=== PATIENT | female | born 1965 | race Caucasian/White ===

== ENCOUNTER → 2016-07-25 | Outpatient (CLI) | payer OTHER ==
[2016-07-25 09:07] LABS: ALT 38 U/L (9-52); AST 28 U/L (14-36); Alkaline Phosphatase 53 U/L (38-126); Anion Gap 7 mmol/L; Blood Urea Nitrogen 20 mg/dL (7-17); Calcium 8.6 mg/dL (8.4-10.2); Carbon Dioxide 27 mmol/L (22-30); Chloride 106 mmol/L (98-107); Cholesterol 215 mg/dL (<200); Glucose 98 mg/dL (74-99); HDL Cholesterol 43 mg/dL (40-60); Non-African American GFR(MDRD) >60 (>60 ml/min/1.73 sqM); Potassium 4.5 mmol/L (3.5-5.1); Sodium 140 mmol/L (137-145); Total Bilirubin 0.6 mg/dL (0.2-1.3); Total Protein 6.2 g/dL (6.3-8.2); Triglycerides 266 mg/dL (<150)
[2016-07-25 09:36] LABS: Basophils % (A) 1 %; CH 30.6; CHCM 34.1; Eosinophils # (A) 0.2 k/uL (0-0.7); Eosinophils % (A) 3 %; HCT 45.5 % (34.0-46.0); HDW 2.96; HGB 14.8 gm/dL (11.4-16.0); Luc # (Auto) 0.14; Luc % (Auto) 2; Lymphocytes # (A) 1.7 k/uL (1.0-4.8); Lymphocytes % (A) 27 %; MCH 29.3 pg (25.0-35.0); MCHC 32.6 g/dL (31.0-37.0); Mean Platelet Volume 7.3; Monocytes # (A) 0.3 k/uL (0-1.0); Monocytes % (A) 6 %; Neutrophils # (A) 3.7 k/uL (1.3-7.7); Neutrophils % (A) 62 %; RBC 5.05 m/uL (3.80-5.40); RDW 14.1 % (11.5-15.5); WBC 6.1 k/uL (3.8-10.6); WBC (Perox) 5.92
== END | disposition home or self-care (01) ==
LOC: LABWHC1 07:56
PROVIDERS: ATTEND Nurse Practitioner Family
DX: L71.9 Rosacea, unspecified (principal); Z79.899 Other long term (current) drug therapy
CPT/HCPCS: 36415; 80053; 80061; 84443; 85025

== ENCOUNTER 2019-04-03 09:57 | Observation (INO) | payer OTHER ==
[2019-04-03] MEDS ORDERED: ASPIRIN 81 MG PO STA (10:29)
[2019-04-03] MEDS ORDERED: MORPHINE SULFATE 2 MG/ML SYRINGE IVP STA (10:29)
[2019-04-03] MEDS ORDERED: SODIUM CHLORIDE 0.9% 500 ML 500 ML IV STA (10:29)
--- NOTE | 2019-04-03 10:32 | ED ---
General Adult HPI - General Source: patient, RN notes reviewed Mode of arrival: ambulatory Limitations: no limitations <Eulalio Clarke - Last Filed: 04/03/19 12:13> <Lanny Marcial - Last Filed: 04/12/19 00:15> - General Chief complaint: Chest Pain Stated complaint: Chest pain Time Seen by Provider: 04/03/19 10:03 - History of Present Illness Initial comments: 54-year-old female with a past medical history of polycystic kidney disease, hypertension, hypercholesterolemia presents to the emergency department for a chief complaint of chest pressure. Patient states she has had chest pressure for about 5 days. States she feels this pressure both in the front of her chest as well as her back. States it radiates to the right side of her neck and is causing tingling in the right arm. Patient does admit to associated shortness of breath. She denies symptoms worsening with exertion. Denies associated naus ea. Patient does states she has felt diaphoretic from time to time. States she was just standing at work today and was sweating. Patient states her sister had a heart attack at 49. Patient is a never smoker. Patient's parents did not have any heart attacks before 65. Patient denies ever having stress testing done. Patient has no other complaints at this time including abdominal pain, nausea or vomiting, headache, or visual changes. (Eulalio Clarke) - Related Data Home Medications Medication Instructions Recorded Confirmed Minocycline HCl [Minocin] 100 mg PO HS PRN 05/29/15 04/03/19 Telmisartan [Micardis] 40 mg DAILY 04/03/19 04/03/19 Previous Rx's Medication Instructions Recorded Atorvastatin Calcium [Lipitor] 10 mg PO DAILY #30 tab 04/04/19 Allergies Allergy/AdvReac Type Severity Reaction Status Date / Time No Known Allergies Allergy Verified 05/29/15 10:51 Review of Systems ROS Other: All systems not noted in ROS Statement are negative. <Eulalio Clarke - Last Filed: 04/03/19 12:13> ROS Other: All systems not noted in ROS Statement are negative. <Lanny Marcial - Last Filed: 04/12/19 00:15> ROS Statement: Those systems with pertinent positive or pertinent negative responses have been documented in the HPI. Past Medical History Past Medical History: No Reported History Additional Past Medical History / Comment(s): kidney stones, "hole in kidney" History of Any Multi-Drug Resistant Organisms: None Reported Past Surgical History: Cholecystectomy, Hernia Repair Additional Past Surgical History / Comment(s): drainage of renal abscess Past Psychological History: Anxiety Smoking Status: Never smoker Past Alcohol Use History: None Reported Past Drug Use History: None Reported <Eulalio Clarke P - Last Filed: 04/03/19 12:13> General Exam Limitations: no limitations General appearance: alert, in no apparent distress Head exam: Present: atraumatic, normocephalic, normal inspection Eye exam: Present: normal appearance, PERRL, EOMI. Absent: scleral icterus, conjunctival injection, periorbital swelling ENT exam: Present: normal exam, mucous membranes moist Neck exam: Present: normal inspection, full ROM. Absent: tenderness, meningismus, lymphadenopathy Respiratory exam: Present: normal lung sounds bilaterally. Absent: respiratory distress, wheezes, rales, rhonchi, stridor, chest wall tenderness Cardiovascular Exam: Present: regular rate, normal rhythm, normal heart sounds. Absent: systolic murmur, diastolic murmur, rubs, gallop, clicks GI/Abdominal exam: Present: soft, normal bowel sounds. Absent: distended, tenderness, guarding, rebound, rigid Extremities exam: Present: normal capillary refill (Radial pulses 2+ in upper extremities and equal bilaterally) <Eulalio Clarke P - Last Filed: 04/03/19 12:13> Course Vital Signs 04/03/19 04/03/19 09:59 12:00 Temperature 98.3 F 98.3 F Pulse Rate 71 71 Respiratory 19 19 Rate Blood Pressure 163/84 163/84 O2 Sat by Pulse 100 100 Oximetry EKG Findings - EKG Comments: EKG Findings:: Normal sinus rhythm, ventricular rate 64, W[place] interval 198, QTC 422, no evidence of ST elevation or depression <Eulalio Clarke P - Last Filed: 04/03/19 12:13> Medical Decision Making - Lab Data Result diagrams: 04/03/19 10:27 04/03/19 10:27 <Eulalio Clarke P - Last Filed: 04/03/19 12:13> - Lab Data Result diagrams: 04/04/19 08:24 04/04/19 08:24 <Lanny Marcial - Last Filed: 04/12/19 00:15> - Medical Decision Making HPI and physical exam as documented. Vitals are stable. CBC is unremarkable. CMP does show some evidence of dehydration so was given fluids. Troponin is negative. D-dimer is within normal limits. Chest x-ray shows no acute cardio pulmonary process. Given patient's family history as well as symptoms she will be admitted for cardiology consultation and possible further evaluation (Eulalio Clarke) I was available for consultation in the emergency department. The history and physical exam were done by the midlevel provider. I was consulted for this patients care. I reviewed the case with the midlevel provider and based on their presentation of the patient, I agree with the assessment, medical decision making and plan of care as documented. I agree with hospitalization and discussed the case with the admitting physician. Chart was dictated using [employer] dictation software. Attempts were made to correct any dictation errors however some typographical errors may persist. (Lanny Marcial) - Lab Data Lab Results 04/03/19 04/03/19 04/03/19 Range/Units 10:27 10:27 10:27 WBC 5.2 (3.8-10.6) k/uL RBC 4.79 (3.80-5.40) m/uL Hgb 14.5 (11.4-16.0) gm/dL Hct 42.2 (34.0-46.0) % MCV 88.0 (80.0-100.0) fL MCH 30.4 (25.0-35.0) pg MCHC 34.5 (31.0-37.0) g/dL RDW 12.9 (11.5-15.5) % Plt Count 169 (150-450) k/uL Neutrophils % 59 % Lymphocytes % 28 % Monocytes % 6 % Eosinophils % 4 % Basophils % 1 % Neutrophils # 3.1 (1.3-7.7) k/uL Lymphocytes # 1.5 (1.0-4.8) k/uL Monocytes # 0.3 (0-1.0) k/uL Eosinophils # 0.2 (0-0.7) k/uL Basophils # 0.1 (0-0.2) k/uL PT 9.6 (9.0-12.0) sec INR 0.9 (<1.2) APTT 23.3 (22.0-30.0) sec D-Dimer 0.45 (<0.60) mg/L FEU Sodium 140 (137-145) mmol/L Potassium 3.9 (3.5-5.1) mmol/L Chloride 110 H (98-107) mmol/L Carbon Dioxide 26 (22-30) mmol/L Anion Gap 4 mmol/L BUN 27 H (7-17) mg/dL Creatinine 0.66 (0.52-1.04) mg/dL Est GFR (CKD-EPI)AfAm >90 (>60 ml/min/1.73 sqM) Est GFR (CKD-EPI)NonAf >90 (>60 ml/min/1.73 sqM) Glucose 78 (74-99) mg/dL Calcium 8.5 (8.4-10.2) mg/dL Magnesium 2.0 (1.6-2.3) mg/dL Total Bilirubin 0.4 (0.2-1.3) mg/dL AST 24 (14-36) U/L ALT 30 (9-52) U/L Alkaline Phosphatase 46 (38-126) U/L Troponin I (0.000-0.034) ng/mL Total Protein 5.5 L (6.3-8.2) g/dL Albumin 3.1 L (3.5-5.0) g/dL Triglycerides (<150) mg/dL Cholesterol (<200) mg/dL LDL Cholesterol, Calc (0-99) mg/dL HDL Cholesterol (40-60) mg/dL Amylase 34 (30-110) U/L Lipase 147 (23-300) U/L 04/03/19 04/03/19 Range/Units 10:27 10:27 WBC (3.8-10.6) k/uL RBC (3.80-5.40) m/uL Hgb (11.4-16.0) gm/dL Hct (34.0-46.0) % MCV (80.0-100.0) fL MCH (25.0-35.0) pg MCHC (31.0-37.0) g/dL RDW (11.5-15.5) % Plt Count (150-450) k/uL Neutrophils % % Lymphocytes % % Monocytes % % Eosinophils % % Basophils % % Neutrophils # (1.3-7.7) k/uL Lymphocytes # (1.0-4.8) k/uL Monocytes # (0-1.0) k/uL Eosinophils # (0-0.7) k/uL Basophils # (0-0.2) k/uL PT (9.0-12.0) sec INR (<1.2) APTT (22.0-30.0) sec D-Dimer (<0.60) mg/L FEU Sodium (137-145) mmol/L Potassium (3.5-5.1) mmol/L Chloride (98-107) mmol/L Carbon Dioxide (22-30) mmol/L Anion Gap mmol/L BUN (7-17) mg/dL Creatinine (0.52-1.04) mg/dL Est GFR (CKD-EPI)AfAm (>60 ml/min/1.73 sqM) Est GFR (CKD-EPI)NonAf (>60 ml/min/1.73 sqM) Glucose (74-99) mg/dL Calcium (8.4-10.2) mg/dL Magnesium (1.6-2.3) mg/dL Total Bilirubin (0.2-1.3) mg/dL AST (14-36) U/L ALT (9-52) U/L Alkaline Phosphatase (38-126) U/L Troponin I <0.012 (0.000-0.034) ng/mL Total Protein (6.3-8.2) g/dL Albumin (3.5-5.0) g/dL Triglycerides 217 H (<150) mg/dL Cholesterol 199 (<200) mg/dL LDL Cholesterol, Calc 119 H (0-99) mg/dL HDL Cholesterol 37 L (40-60) mg/dL Amylase (30-110) U/L Lipase (23-300) U/L Disposition Is patient prescribed a controlled substance at d/c from ED?: No Time of Disposition: 12:14 <Eulalio Clarke P - Last Filed: 04/03/19 12:13> <Lanny Marcial - Last Filed: 04/12/19 00:15> Clinical Impression: Chest pressure, Dehydration Disposition: ADMITTED IP TO THIS HOSP Condition: Stable
[2019-04-03 11:08] LABS: Basophils # (A) 0.1 k/uL (0-0.2); Basophils % (A) 1 %; Eosinophils # (A) 0.2 k/uL (0-0.7); Eosinophils % (A) 4 %; HCT 42.2 % (34.0-46.0); HGB 14.5 gm/dL (11.4-16.0); Lymphocytes # (A) 1.5 k/uL (1.0-4.8); Lymphocytes % (A) 28 %; MCH 30.4 pg (25.0-35.0); MCHC 34.5 g/dL (31.0-37.0); Mean Platelet Volume 7.1; Monocytes # (A) 0.3 k/uL (0-1.0); Monocytes % (A) 6 %; Neutrophils # (A) 3.1 k/uL (1.3-7.7); Neutrophils % (A) 59 %; Platelet Count 169 k/uL (150-450); RBC 4.79 m/uL (3.80-5.40); RDW 12.9 % (11.5-15.5); WBC 5.2 k/uL (3.8-10.6)
[2019-04-03 11:09] LABS: ALT 30 U/L (9-52); AST 24 U/L (14-36); African American GFR (CKD) >90 (>60 ml/min/1.73 sqM); Albumin 3.1 g/dL (3.5-5.0); Alkaline Phosphatase 46 U/L (38-126); Amylase 34 U/L (30-110); Anion Gap 4 mmol/L; Blood Urea Nitrogen 27 mg/dL (7-17); Calcium 8.5 mg/dL (8.4-10.2); Carbon Dioxide 26 mmol/L (22-30); Chloride 110 mmol/L (98-107); Glucose 78 mg/dL (74-99); Non-African American GFR(CKD) >90 (>60 ml/min/1.73 sqM); Potassium 3.9 mmol/L (3.5-5.1); Sodium 140 mmol/L (137-145); Total Bilirubin 0.4 mg/dL (0.2-1.3); Total Protein 5.5 g/dL (6.3-8.2)
[2019-04-03 11:18] LABS: D-Dimer 0.45 mg/L FEU (<0.60); INR 0.9 (<1.2); Partial Thromboplastin Time 23.3 sec (22.0-30.0); Prothrombin Time 9.6 sec (9.0-12.0)
--- NOTE | 2019-04-03 11:20 | XR ---
EXAMINATION TYPE: XR chest 2V DATE OF EXAM: 04/03/2019 COMPARISON: NONE HISTORY: Chest pain TECHNIQUE: Frontal and lateral views of the chest are obtained. FINDINGS: There are overlying cardiac leads. There is no focal air space opacity, pleural effusion, o r pneumothorax seen. The cardiac silhouette size is within normal limits. The osseous structures a re intact. IMPRESSION: No acute cardiopulmonary process.
[2019-04-03] MEDS ORDERED: NITROGLYCERIN SL TABS 0.4 MG TAB SUBLINGUAL PRN (12:14)
[2019-04-03 13:29] VITALS: RESP 18
[2019-04-03] MEDS ORDERED: INFLUENZA VACCINE (6 MOS+) 60 MCG/0.5 ML SYRINGE IM ONE (15:20)
[2019-04-04 04:22] LABS: Cholesterol 199 mg/dL (<200); HDL Cholesterol 37 mg/dL (40-60); LDL Cholesterol,Calculated 119 mg/dL (0-99); Triglycerides 217 mg/dL (<150)
[2019-04-04] MEDS ORDERED: Magnesium Replacement Protocol 1 EACH MISC MISCELLANE PRN (08:05)
[2019-04-04] MEDS ORDERED: Potassium Replacement Protocol 1 EACH MISC MISCELLANE PRN (08:05)
[2019-04-04 08:38] LABS: HCT 41.4 % (34.0-46.0); HGB 14.1 gm/dL (11.4-16.0); MCH 30.4 pg (25.0-35.0); MCHC 34.1 g/dL (31.0-37.0); MCV 89.2 fL (80.0-100.0); Platelet Count 156 k/uL (150-450); RBC 4.64 m/uL (3.80-5.40); RDW 12.9 % (11.5-15.5); WBC 4.2 k/uL (3.8-10.6)
[2019-04-04 08:52] LABS: African American GFR (CKD) >90 (>60 ml/min/1.73 sqM); Anion Gap 4 mmol/L; Blood Urea Nitrogen 18 mg/dL (7-17); Calcium 8.1 mg/dL (8.4-10.2); Carbon Dioxide 26 mmol/L (22-30); Chloride 110 mmol/L (98-107); Glucose 98 mg/dL (74-99); Non-African American GFR(CKD) >90 (>60 ml/min/1.73 sqM); Potassium 4.3 mmol/L (3.5-5.1); Sodium 140 mmol/L (137-145)
[2019-04-04] MEDS ORDERED: ASPIRIN 325 MG TAB PO SCH (09:00)
--- NOTE | 2019-04-04 10:40 | CONS ---
CONSULTATION Olivia Angeles is a 54-year-old lady, a patient of Dr. Nina, who is an yoghurt maker who works with Dr. Rangel. This lady came into the hospital because for the last 5 to 6 days she was having pain over her right scapula area and right shoulder area posteriorly then the pain gradually came to the front of the chest and she felt concerned and came into the hospital. She has a strong family history of CAD and she has hypertension, takes Micardis 40 mg daily. She is reasonably active person, does not have a regular exercise program. Her symptoms occurred at rest, not related to activity. Three sets of troponins are normal. She is resting comfortably. There is a significant amount of anxiety. Her LDL cholesterol is 119. Other labs are within normal limits. She is resting comfortably at the time of my evaluation. PAST MEDICAL HISTORY: 1. Hypertension. 2. Strong family history of premature CAD. 3. She is status post umbilical hernia surgery, cholecystectomy. 4. She also has history of polycystic kidney disease, but renal function is good. The patient is not a smoker. ALLERGIES: None. MEDICATIONS: Medications include 40 mg of Micardis. PHYSICAL EXAMINATION: On examination, blood pressure is 130/70, pulse rate is 70 per minute, regular. HEENT: Unremarkable. Fundus was not examined by me. Neck is supple. No JVD. I do not hear a carotid bruit. There is no thyromegaly. Heart exam reveals S1, S2 heard normally. No rub, murmur or gallop. Lungs are clear. Abdomen is soft, nontender. Lower extremities reveal normal pulses. No edema. Central nervous system is normal. EKG revealed a sinus mechanism, no acute changes. IMPRESSION: 1. Atypical chest pain. 2. Polycystic kidney. 3. Hypertension. 4. Family history of coronary artery disease. RECOMMENDATIONS: I am recommending that we increase activity, proceed with an echocardiogram and a stress echo and if this is normal she can be discharged. I discussed my thoughts in detail with the patient. Thank you very much for the consult. MMODL / IJN: [id number] /
--- NOTE | 2019-04-04 11:40 | P.HPIM ---
History of Present Illness H&P Date: 04/04/19 Chief Complaint: Right shoulder blade pressure radiating to right chest This is a 54-year-old female with history of hypertension, polycystic renal disease, kidney stones, gastric ulcer, diverticular disease, cholecystectomy, strong family history of CAD, sister from [place] presented to the ER with complaints of posterior right shoulder blade pressure radiated to right anterior chest, right arm tingling sensation ,present upon awakening on Sunday morning, accompanied by shortness of breath, worsened with exertion . Denies awakening caused from the pressure.Denies diaphoresis, denies lightheadedness, dizziness or palpitations. Denies nausea vomiting or diarrhea. Denies abdominal pain. Denies recent strenuous exertional activities, trauma. Troponins negative 3. EKG sinus rhythm. D-dimer within normal limits. Chest x-ray nonacute. Vital signs stable, afebrile, normal WBC. CBC unremarkable. Potassium 3.9, chloride 110, BUN 27 and creatinine 0.66, magnesium 2.0. Albumin 3.1, triglycerides 217, cholesterol 199, LDL 119, HDL 37. LFTs within normal limits. Review of Systems Constitutional: Denied any fatigue denied any fever. Cardio vascular: denied any chest pain, palpitations Gastrointestinal denied any nausea vomiting Pulmonary: Positive shortness of breath cough Neurologic denied any new focal deficits ROS Statement: Those systems with pertinent positive or pertinent negative responses have been documented in the HPI. ROS Other: All systems not noted in ROS Statement are negative. Past Medical History Past Medical History: No Reported History Additional Past Medical History / Comment(s): kidney stones, "hole in kidney" History of Any Multi-Drug Resistant Organisms: None Reported Past Surgical History: Cholecystectomy, Hernia Repair Additional Past Surgical History / Comment(s): drainage of renal abscess Past Psychological History: Anxiety Smoking Status: Never smoker Past Alcohol Use History: None Reported Past Drug Use History: None Reported - Past Family History Father Family Medical History: Cancer Additional Family Medical History / Comment(s): Father had exposure to asbestos. Mother Family Medical History: Hyperlipidemia, Hypertension Additional Family Medical History / Comment(s): Mother had diverticular disease. Sister(s) Family Medical History: Diabetes Mellitus, Myocardial Infarction (PA) Additional Family Medical History / Comment(s): One sister had a PA at the age of 48yrs. Another sister had renal failure, breast cancer, diabetes and CABG at the age of 65yrs-she is . Medications and Allergies Home Medications Medication Instructions Recorded Confirmed Type Minocycline HCl [Minocin] 100 mg PO HS PRN 05/29/15 04/03/19 History Telmisartan [Micardis] 40 mg DAILY 04/03/19 04/03/19 History Allergies Allergy/AdvReac Type Severity Reaction Status Date / Time No Known Allergies Allergy Verified 05/29/15 10:51 Physical Exam Vitals: Vital Signs Temp Pulse Pulse Resp BP BP Pulse Ox 04/03/19 13:28 97.9 F 65 18 164/94 100 04/03/19 12:00 98.3 F 71 19 163/84 100 04/03/19 09:59 98.3 F 71 19 163/84 100 Intake and Output 04/02/19 04/03/19 04/03/19 22:59 06:59 14:59 Other: Weight 78.925 kg PHYSICAL EXAM: VITAL SIGNS: As above GENERAL: Sitting up in bed, no acute distress HEENT: Conjunctivae normal. eyes normal. NECK: No JVD. No thyroid enlargement. No LNs CARDIOVASCULAR: S1, S2 regular.. No murmur RESPIRATION: Breath sounds diminished in the bases. No rhonchi or crackles. No bronchial breathing. ABDOMEN: Soft, nontender . No guarding. no masses palpable. No ascites, No hepatosplenomegaly.Bowel sounds heard. LEGS: No edema. no swelling PSYCHIATRY: Alert and oriented X3, mood and affect normal. NERVOUS SYSTEM: Cranial N 2-12 grossly normal. Moves all 4 limbs. No focal deficits. Strength and sensation grossly intact.. Skin: no rash Joints: No active swelling. No inflammation. Lymphatic system. No LN neck axilla . Results CBC & Chem 7: 04/04/19 08:24 04/04/19 08:24 Labs: Abnormal Lab Results - Last 24 Hours (Table) 04/03/19 Range/Units 10:27 Chloride 110 H (98-107) mmol/L BUN 27 H (7-17) mg/dL Total Protein 5.5 L (6.3-8.2) g/dL Albumin 3.1 L (3.5-5.0) g/dL Assessment and Plan Assessment: Acute chest pressure, possibly Prinzmetal angina, in a patient with strong family history of CAD. Hypertension Polycystic renal disease Cholecystectomy Gastric ulcer Obesity, BMI 30.8 Hyperlipidemia Plan: Continue on current medication regime ,monitoring and symptomatic treatment. Acute coronary syndrome pathway. Cardiology consulted. Echo ordered. GI and DVT prophylaxis in place. The impression and plan of care has been dictated as directed. : I performed a history and examination of this patient, discussed the same with the dictator. I agree with the dictator's note ,documented as a scribe. Any additional findings or plans will be noted.
--- NOTE | 2019-04-04 11:44 | ECHOF ---
Referral Reason:CP MEASUREMENTS -------- HEIGHT: 160.0 cm WEIGHT: 78.9 kg BP: 164/94 RVIDd: 2.8 cm (< 3.3) IVSd: 1.3 cm (0.6 - 1.1) LVIDd: 4.2 cm (3.9 - 5.3) LVPWd: 1.3 cm (0.6 - 1.1) IVSs: 1.7 cm LVIDs: 2.7 cm LVPWs: 1.7 cm LA Diam: 2.8 cm (2.7 - 3.8) LAESV Index (A-L): 22.27 ml/m Ao Diam: 3.0 cm (2.0 - 3.7) AV Cusp: 2.3 cm (1.5 - 2.6) MV EXCURSION: 15.387 mm (> 18.000) MV EF SLOPE: 78 mm/s (70 - 150) EPSS: 0.6 cm MV E Willem: 0.96 m/s MV DecT: 231 ms MV A Willem: 0.82 m/s MV E/A Ratio: 1.17 FINDINGS -------- Sinus rhythm. This was a technically good study. The left ventricular size is normal. There is mild concentric left ventricular hypertrophy. Overa ll left ventricular systolic function is normal with, an EF between 60 - 65 %. The right ventricle is normal in size. Normal LA size by volume 22+/-6 ml/m2. The right atrium is normal in size. Interatrial and interventricular septum intact. The aortic valve is trileaflet and appears structurally normal. The mitral valve is normal. The tricuspid valve appears structurally normal. Trace/mild (physiologic) pulmonic regurgitation. The aortic root size is normal. Normal inferior vena cava with normal inspiratory collapse consistent with estimated right atrial pre ssure of 5 mmHg. There is no pericardial effusion. CONCLUSIONS -------- 1. Sinus rhythm. 2. This was a technically good study. 3. The left ventricular size is normal. 4. There is mild concentric left ventricular hypertrophy. 5. Overall left ventricular systolic function is normal with, an EF between 60 - 65 %. 6. The right ventricle is normal in size. 7. Normal LA size by volume 22+/-6 ml/m2. 8. The right atrium is normal in size. 9. Interatrial and interventricular septum intact. 10. The aortic valve is trileaflet and appears structurally normal. 11. The mitral valve is normal. 12. The tricuspid valve appears structurally normal. 13. Trace/mild (physiologic) pulmonic regurgitation. 14. The aortic root size is normal. 15. Normal inferior vena cava with normal inspiratory collapse consistent with estimated right atrial pressure of 5 mmHg. 16. There is no pericardial effusion. WORK CAR OPERATOR: LUZ MARIA Chow
[2019-04-04] MEDS ORDERED: PANTOPRAZOLE 40 MG/10 ML VIAL IVP SCH (12:00)
[2019-04-04 12:19] VITALS: PULSE 77; TEMP 97.5
[2019-04-04 13:01] VITALS: BP 142/98
--- NOTE | 2019-04-04 13:02 | ECHOS ---
STRESS ECHOCARDIOGRAM DATE OF SERVICE: 04/04/2019 INDICATIONS: Chest pain. MEDICATIONS: Micardis. BASELINE HEART RATE: 65 BASELINE BLOOD PRESSURE: 137/75 MAXIMUM HEART RATE: 147 MAXIMUM BLOOD PRESSURE: 211/80 85% MPHR: 139 100% MPHR: 164 METS: 9.7 MAXIMUM STAGE REACHED: III TOTAL EXERCISE TIME: 8 minutes CLINICAL INFORMATION: Baseline EKG revealed normal sinus rhythm without significant ST-T changes. Patient walked for 8 minutes achieved a maximal heart rate of 147 beats per minute which is well above 85% of predicted maximal. She developed fatigue and shortness of breath but did not have angina or arrhythmia. EKG did not reveal any ST-segment changes to indicate ischemia. There was hypertensive response to exercise with a peak pressure of 211/80. By EKG criteria, this is a negative stress test with fair exercise capacity. Baseline echo images revealed normal wall motion and wall thickening of all segments. At peak exercise, there was good augmentation of left ventricular wall motion and wall thickening of all segments suggesting that there is no evidence of any stress-induced ischemia on this study. FINAL IMPRESSION: 1. By EKG criteria, this is a negative stress test with fair exercise capacity. 2. Normal stress echocardiogram without any evidence to suggest ischemia. MMODL / IJN: [id number] /
--- NOTE | 2019-04-04 14:04 | P.DS ---
Providers Date of admission: 04/03/19 12:15 Expected date of discharge: 04/04/19 Attending physician: Mookie Nina Consults: 04/03/19 12:14 Consult Physician Routine Consulting Provider: Adis Ortiz Consult Reason/Comments: chest pressure, concerning fam history, Do you want consulting provider notified?: Yes Primary care physician: Mookie Nina Hospital Course: Final Diagnoses: atypical chest pressure, in a patient with strong family history of CAD.status post verbally reported negative stress echo Hypertension Polycystic renal disease Cholecystectomy Gastric ulcer Obesity, BMI 30.8 Hyperlipidemia Hospital course:This is a 54-year-old female with history of hypertension, polycystic renal disease, kidney stones, gastric ulcer, diverticular disease, cholecystectomy, strong family history of CAD, sister from [place] presented to the ER with complaints of posterior right shoulder blade pressure radiated to right anterior chest, right arm tingling sensation ,present upon awakening on Sunday morning, accompanied by shortness of breath, worsened with exertion . Denies awakening caused from the pressure.Denies diaphoresis, denies lightheadedness, dizziness or palpitations. Denies nausea vomiting or diarrhea. Denies abdominal pain. Denies recent strenuous exertional activities, trauma. Troponins negative 3. EKG sinus rhythm. D-dimer within normal limits. Chest x-ray nonacute. Vital signs stable, afebrile, normal WBC. CBC unremarkable. Potassium 3.9, chloride 110, BUN 27 and creatinine 0.66, magnesium 2.0. Albumin 3.1, triglycerides 217, cholesterol 199, LDL 119, HDL 37. LFTs within normal limits. evaluated by cardiology with stress echo recommended.echo reported normal LV function, EF 60-65%.Verbal report of negative stress echo and cardiac Clearance for dc.patient is being discharged home in stable condition with guarded prognosis. EXAM: GENERAL: Alert andOriented 3,no acute distress CARDIOVASCULAR: S1, S2 regular. No murmur RESPIRATION: Breath sounds diminished in the bases. ABDOMEN: Soft, nontender . No guarding. no masses palpable. Bowel sounds heard. NERVOUS SYSTEM: No focal deficits. The impression and plan of care has been dictated as directed. : I performed a history and examination of this patient, discussed the same with the dictator. I agree with the dictator's note ,documented as a scribe. Any additional findings or plans will be noted. Patient Condition at Discharge: Stable Plan - Discharge Summary Discharge Rx Participant: No New Discharge Prescriptions: New Atorvastatin Calcium [Lipitor] 10 mg PO DAILY #30 tab Continue Minocycline HCl [Minocin] 100 mg PO HS PRN PRN Reason: ROSACEA Telmisartan [Micardis] 40 mg DAILY Discharge Medication List Minocycline HCl [Minocin] 100 mg PO HS PRN 05/29/15 [History] Telmisartan [Micardis] 40 mg DAILY 04/03/19 [History] Atorvastatin Calcium [Lipitor] 10 mg PO DAILY #30 tab 04/04/19 [Rx] Follow up Appointment(s)/Referral(s): Linda Bruce MD [STAFF PHYSICIAN] - 2 Weeks (office will call the patient regarding time and date of follow up appointment.) Mookie Nina MD [Primary Care Provider] - 3 Days Patient Instructions/Handouts: Chest Pain (DC) Discharge Disposition: HOME SELF-CARE
== END 2019-04-04 13:30 | disposition home or self-care (01) ==
LOC: EC 09:57 → 1SOBS 12:15
PROVIDERS: ADMIT Family Medicine; ATTEND Family Medicine
DX: R07.89 Other chest pain (principal); E66.9 Obesity, unspecified; E78.00 Pure hypercholesterolemia, unspecified; E78.5 Hyperlipidemia, unspecified; E86.0 Dehydration; I10 Essential (primary) hypertension; K25.9 Gastric ulcer, unspecified as acute or chronic, without hemorrhage or perforation; Q61.3 Polycystic kidney, unspecified; Z68.30 Body mass index [BMI] 30.0-30.9, adult; Z79.899 Other long term (current) drug therapy; Z80.3 Family history of malignant neoplasm of breast; Z82.49 Family history of ischemic heart disease and other diseases of the circulatory system; Z83.3 Family history of diabetes mellitus; Z87.11 Personal history of peptic ulcer disease; Z87.442 Personal history of urinary calculi; Z90.49 Acquired absence of other specified parts of digestive tract
CPT/HCPCS: 93005 ×2; 99285; 36415; 94760; 93306; 93351; 85379; 80061; 80053; 80048; 82150; 83690; 83735; 84484; 85025; 85027; 85610; 85730; 71046; 90686; G0378 ×2; G0008

== ENCOUNTER 2019-10-30 10:33 | Emergency (ER) | payer OTHER ==
[2019-10-30 10:37] VITALS: PULSE 62; RESP 18; TEMP 97.9
[2019-10-30] MEDS ORDERED: KETOROLAC 30 MG/ML 1 ML VIAL IVP STA (10:58)
[2019-10-30] MEDS ORDERED: ONDANSETRON 4 MG/2 ML VIAL IVP STA (10:58)
[2019-10-30] MEDS ORDERED: SODIUM CHLORIDE 0.9% 1,000 ML IV STA ×2 (10:58)
[2019-10-30] MEDS ORDERED: PANTOPRAZOLE 40 MG/10 ML VIAL IVP STA (10:58)
[2019-10-30] MEDS ORDERED: MORPHINE SULFATE 4 MG/ML SYRINGE IV STA (10:58)
--- NOTE | 2019-10-30 11:00 | ED ---
Abdominal Pain HPI - General Chief Complaint: Abdominal Pain Stated Complaint: Ovary & back pain Time Seen by Provider: 10/30/19 10:41 Source: patient, family, RN notes reviewed, old records reviewed Mode of arrival: ambulatory Limitations: no limitations - History of Present Illness Initial Comments: Patient is a 54-year-old female who presents emergency Department today with complaints of onset of right pelvic pain leading towards the right flank onset at 5:30 this morning. She reports that she had a history of kidney stones in the past but they've always affected her left side. Has implanted history of ovarian cysts. She complains of nausea. Patient denies any chest pain or shortness of breath. She does relate that she had a small bowel movement this morning but denies any diarrhea or bloody stools and denies any change in urination. - Related Data Home Medications Medication Instructions Recorded Confirmed Minocycline HCl [Minocin] 100 mg PO HS PRN 05/29/15 04/03/19 Telmisartan [Micardis] 40 mg DAILY 04/03/19 04/03/19 Previous Rx's Medication Instructions Recorded Atorvastatin Calcium [Lipitor] 10 mg PO DAILY #30 tab 04/04/19 Cephalexin [Keflex] 500 mg PO Q6HR 10 Days #40 cap 10/30/19 HYDROcodone/APAP 10-325MG [[place] 1 tab PO Q6H PRN #10 tab 10/30/19 10-325] Ketorolac [Toradol] 10 mg PO Q6HR #15 tab 10/30/19 Ondansetron Odt [Zofran Odt] 4 mg PO Q8HR PRN #15 tab 10/30/19 Tamsulosin [Flomax] 0.4 mg PO DAILY #7 cap 10/30/19 Allergies Allergy/AdvReac Type Severity Reaction Status Date / Time No Known Allergies Allergy Verified 10/30/19 10:37 Review of Systems ROS Statement: Those systems with pertinent positive or pertinent negative responses have been documented in the HPI. ROS Other: All systems not noted in ROS Statement are negative. Past Medical History Past Medical History: No Reported History Additional Past Medical History / Comment(s): kidney stones, "hole in kidney" History of Any Multi-Drug Resistant Organisms: None Reported Past Surgical History: Cholecystectomy, Hernia Repair Additional Past Surgical History / Comment(s): drainage of renal abscess Past Anesthesia/Blood Transfusion Reactions: No Reported Reaction Past Psychological History: Anxiety Smoking Status: Never smoker Past Alcohol Use History: None Reported Past Drug Use History: None Reported - Past Family History Father Family Medical History: Cancer Additional Family Medical History / Comment(s): Father had exposure to asbestos. Mother Family Medical History: Hyperlipidemia, Hypertension Additional Family Medical History / Comment(s): Mother had diverticular disease. Sister(s) Family Medical History: Diabetes Mellitus, Myocardial Infarction (RI) Additional Family Medical History / Comment(s): One sister had a RI at the age of 48yrs. Another sister had renal failure, breast cancer, diabetes and CABG at the age of 65yrs-she is . General Exam - General Exam Comments Initial Comments: 54-year-old female. Alert and oriented. Limitations: no limitations General appearance: alert, in no apparent distress Head exam: Present: atraumatic, normocephalic, normal inspection Eye exam: Present: normal appearance, PERRL, EOMI. Absent: scleral icterus, conjunctival injection, periorbital swelling ENT exam: Present: normal exam, mucous membranes moist Neck exam: Present: normal inspection. Absent: tenderness, meningismus, lymphadenopathy Respiratory exam: Present: normal lung sounds bilaterally. Absent: respiratory distress, wheezes, rales, rhonchi, stridor Cardiovascular Exam: Present: regular rate, normal rhythm, normal heart sounds. Absent: systolic murmur, diastolic murmur, rubs, gallop, clicks GI/Abdominal exam: Present: soft, tenderness (Right lower quadrant tenderness), normal bowel sounds. Absent: distended, guarding, rebound, rigid Extremities exam: Present: normal inspection, full ROM, normal capillary refill. Absent: tenderness, pedal edema, joint swelling, calf tenderness Back exam: Present: normal inspection Neurological exam: Present: alert Psychiatric exam: Present: normal affect, normal mood Skin exam: Present: warm, dry, intact, normal color. Absent: rash Course Vital Signs 10/30/19 10/30/19 10:34 12:54 Temperature 97.9 F Pulse Rate 62 Respiratory 18 Rate Blood Pressure 225/108 163/79 O2 Sat by Pulse 98 Oximetry Medical Decision Making - Medical Decision Making 54-year-old female presents emergency Department department today with onset of right-sided lower abdominal pain starting at 5:30 this morning. She did go to work. Patient reports that she has no fevers. On exam she has right lower quadrant tenderness and right flank tenderness. Labs reviewed. Evidence of hematuria and white blood cells and bacteria in the urine. Urine culture will be completed. CT abdomen and pelvis was reviewed. She is evidence of a 3 mm distal right ureter stone with evidence of hydronephrosis. She also has significant cysts on bilateral kidneys which hasn't increased in size from previous scan in 2016. I informed Patient of the multiple cysts and she has been aware of this but has not followed with a urologist or her geriatric personal care aide in some time. Patient also was informed of cysts over the liver. Computed tomography scan also shows a bulky uterus and she may benefit from pelvic MRI or ultrasound in the future. I didn't perform Patient all these findings and to follow-up with her primary care physician. In the meantime with patient's urinalysis showing some concern for blood cells of infection she was given 2 g of bolus of IV Rocephin and pain was managed after Dilaudid and Toradol dose of morphine. Patient was reevaluated resting comfortably in bed. I discussed proper follow-up with urology regards to the polycystic kidney disease and disease and current kidney stone. Discussed return parameters. - Lab Data Result diagrams: 10/30/19 11:10 10/30/19 11:10 Lab Results 10/30/19 10/30/19 10/30/19 Range/Units 11:10 11:10 11:10 WBC 7.1 (3.8-10.6) k/uL RBC 4.95 (3.80-5.40) m/uL Hgb 14.6 (11.4-16.0) gm/dL Hct 43.5 (34.0-46.0) % MCV 88.0 (80.0-100.0) fL MCH 29.4 (25.0-35.0) pg MCHC 33.4 (31.0-37.0) g/dL RDW 13.1 (11.5-15.5) % Plt Count 179 (150-450) k/uL Neutrophils % 67 % Lymphocytes % 23 % Monocytes % 6 % Eosinophils % 2 % Basophils % 1 % Neutrophils # 4.7 (1.3-7.7) k/uL Lymphocytes # 1.6 (1.0-4.8) k/uL Monocytes # 0.4 (0-1.0) k/uL Eosinophils # 0.1 (0-0.7) k/uL Basophils # 0.0 (0-0.2) k/uL PT 9.7 (9.0-12.0) sec INR 0.9 (<1.2) APTT 24.2 (22.0-30.0) sec Sodium 137 (137-145) mmol/L Potassium 4.4 (3.5-5.1) mmol/L Chloride 108 H (98-107) mmol/L Carbon Dioxide 24 (22-30) mmol/L Anion Gap 5 mmol/L BUN 26 H (7-17) mg/dL Creatinine 0.81 (0.52-1.04) mg/dL Est GFR (CKD-EPI)AfAm >90 (>60 ml/min/1.73 sqM) Est GFR (CKD-EPI)NonAf 82 (>60 ml/min/1.73 sqM) Glucose 100 H (74-99) mg/dL Calcium 8.8 (8.4-10.2) mg/dL Total Bilirubin 0.5 (0.2-1.3) mg/dL AST 26 (14-36) U/L ALT 25 (4-34) U/L Alkaline Phosphatase 59 (38-126) U/L Total Protein 6.8 (6.3-8.2) g/dL Albumin 3.9 (3.5-5.0) g/dL Amylase 59 (30-110) U/L Lipase 193 (23-300) U/L Urine Color Urine Appearance (Clear) Urine pH (5.0-8.0) Ur Specific [place] (1.001-1.035) Urine Protein (Negative) Urine Glucose (UA) (Negative) Urine Ketones (Negative) Urine Blood (Negative) Urine Nitrite (Negative) Urine Bilirubin (Negative) Urine Urobilinogen (<2.0) mg/dL Ur Leukocyte Esterase (Negative) Urine RBC (0-5) /hpf Urine WBC (0-5) /hpf Ur Squamous Epith Cells (0-4) /hpf Urine Bacteria (None) /hpf Urine Mucus (None) /hpf 10/30/19 Range/Units 11:10 WBC (3.8-10.6) k/uL RBC (3.80-5.40) m/uL Hgb (11.4-16.0) gm/dL Hct (34.0-46.0) % MCV (80.0-100.0) fL MCH (25.0-35.0) pg MCHC (31.0-37.0) g/dL RDW (11.5-15.5) % Plt Count (150-450) k/uL Neutrophils % % Lymphocytes % % Monocytes % % Eosinophils % % Basophils % % Neutrophils # (1.3-7.7) k/uL Lymphocytes # (1.0-4.8) k/uL Monocytes # (0-1.0) k/uL Eosinophils # (0-0.7) k/uL Basophils # (0-0.2) k/uL PT (9.0-12.0) sec INR (<1.2) APTT (22.0-30.0) sec Sodium (137-145) mmol/L Potassium (3.5-5.1) mmol/L Chloride (98-107) mmol/L Carbon Dioxide (22-30) mmol/L Anion Gap mmol/L BUN (7-17) mg/dL Creatinine (0.52-1.04) mg/dL Est GFR (CKD-EPI)AfAm (>60 ml/min/1.73 sqM) Est GFR (CKD-EPI)NonAf (>60 ml/min/1.73 sqM) Glucose (74-99) mg/dL Calcium (8.4-10.2) mg/dL Total Bilirubin (0.2-1.3) mg/dL AST (14-36) U/L ALT (4-34) U/L Alkaline Phosphatase (38-126) U/L Total Protein (6.3-8.2) g/dL Albumin (3.5-5.0) g/dL Amylase (30-110) U/L Lipase (23-300) U/L Urine Color Light Red Urine Appearance Cloudy H (Clear) Urine pH 5.0 (5.0-8.0) Ur Specific [place] 1.017 (1.001-1.035) Urine Protein Trace H (Negative) Urine Glucose (UA) Negative (Negative) Urine Ketones Negative (Negative) Urine Blood Moderate H (Negative) Urine Nitrite Negative (Negative) Urine Bilirubin Negative (Negative) Urine Urobilinogen <2.0 (<2.0) mg/dL Ur Leukocyte Esterase Large H (Negative) Urine RBC >182 H (0-5) /hpf Urine WBC 67 H (0-5) /hpf Ur Squamous Epith Cells 2 (0-4) /hpf Urine Bacteria Occasional H (None) /hpf Urine Mucus Few H (None) /hpf - Radiology Data Radiology results: report reviewed Ultrasound shows a possible 3 mm distal right ureteral calculus. Correlating for renal colic send symptoms. Mild fat stranding around the right kidney with mild obstructive uropathy. Multicystic kidneys and liver. Renal cysts are 8.6 cm increased from 8 cm. The cystic right kidney is very bulky with increasing signs of cysts in the right side of the abdomen with continued mass effect onto the pancreatic head. There is evidence of a bulky uterus suspecting underlying large fibroid measuring 8.4 cm which is increased from 6.6 cm. Given post menopausal status nonemergent pelvic ultrasound or MRI can evaluate. There is diffuse diverticulosis without diverticulitis. Disposition Clinical Impression: Right ureteral stone, Polycystic kidney, Liver cyst, Uterine fibroid Disposition: HOME SELF-CARE Condition: Good Instructions (If sedation given, give patient instructions): Ureteral Stones (ED) Additional Instructions: Patient has a drink plenty of fluids. Follow-up with urology. Return to emergency department if any alarming signs or symptoms occur. Prescriptions: Tamsulosin [Flomax] 0.4 mg PO DAILY #7 cap Cephalexin [Keflex] 500 mg PO Q6HR 10 Days #40 cap HYDROcodone/APAP 10-325MG [[place] 10-325] 1 tab PO Q6H PRN #10 tab PRN Reason: Pain Ketorolac [Toradol] 10 mg PO Q6HR #15 tab Ondansetron Odt [Zofran Odt] 4 mg PO Q8HR PRN #15 tab PRN Reason: Nausea Is patient prescribed a controlled substance at d/c from ED?: Yes If prescribed controlled substance>3 days was MAPS reviewed?: Prescribed <3 Days If opioid is for acute pain is fill amount 7 days or less?: Yes If Rx opioid, was Start Talking consent form obtained?: Yes Referrals: Adithya Beach DO [Primary Care Provider] - 1-2 days Time of Disposition: 13:38
[2019-10-30 11:32] LABS: Basophils % (A) 1 %; Eosinophils # (A) 0.1 k/uL (0-0.7); Eosinophils % (A) 2 %; HCT 43.5 % (34.0-46.0); HGB 14.6 gm/dL (11.4-16.0); Lymphocytes # (A) 1.6 k/uL (1.0-4.8); Lymphocytes % (A) 23 %; MCH 29.4 pg (25.0-35.0); MCHC 33.4 g/dL (31.0-37.0); Monocytes # (A) 0.4 k/uL (0-1.0); Monocytes % (A) 6 %; Neutrophils # (A) 4.7 k/uL (1.3-7.7); Neutrophils % (A) 67 %; Platelet Count 179 k/uL (150-450); RBC 4.95 m/uL (3.80-5.40); RDW 13.1 % (11.5-15.5); WBC 7.1 k/uL (3.8-10.6)
[2019-10-30 11:39] LABS: ALT 25 U/L (4-34); AST 26 U/L (14-36); African American GFR (CKD) >90 (>60 ml/min/1.73 sqM); Albumin 3.9 g/dL (3.5-5.0); Alkaline Phosphatase 59 U/L (38-126); Amylase 59 U/L (30-110); Anion Gap 5 mmol/L; Appearance,Urine Cloudy (Clear); Bacteria,Urine Occasional /hpf; Bilirubin,Urine Negative (Negative); Blood Urea Nitrogen 26 mg/dL (7-17); Blood,Urine Moderate (Negative); Calcium 8.8 mg/dL (8.4-10.2); Carbon Dioxide 24 mmol/L (22-30); Chloride 108 mmol/L (98-107); Color,Urine Light Red; Glucose 100 mg/dL (74-99); Glucose,Urine (UA) Negative (Negative); Ketones,Urine Negative (Negative); Leukocyte Esterase,Urine Large (Negative); Mucus,Urine Few /hpf; Nitrite,Urine Negative (Negative); Non-African American GFR(CKD) 82 (>60 ml/min/1.73 sqM); Potassium 4.4 mmol/L (3.5-5.1); Protein,Urine Trace (Negative); RBC,Urine >182 /hpf (0-5); Sodium 137 mmol/L (137-145); Specific Gravity,Urine 1.017 (1.001-1.035); Squamous Epithelial Cell,Urine 2 /hpf (0-4); Total Bilirubin 0.5 mg/dL (0.2-1.3); Total Protein 6.8 g/dL (6.3-8.2); Urobilinogen,Urine <2.0 mg/dL (<2.0); WBC,Urine 67 /hpf (0-5)
--- NOTE | 2019-10-30 11:40 | XR ---
EXAMINATION TYPE: XR KUB DATE OF EXAM: 10/30/2019 Comparison: 02/09/2011 Clinical History: 54-year-old female with abdominal pain Findings: Lung bases are clear. No evidence for free intraperitoneal air. Cholecystectomy clips. No dilated small bowel or air-fluid levels. Mild overall snowboarding. Multiple pelvic phleboliths. No definite suspicious calcification seen. Impression: No evidence for free air or bowel obstruction. Mild stool burden.
[2019-10-30 11:51] LABS: INR 0.9 (<1.2); Partial Thromboplastin Time 24.2 sec (22.0-30.0); Prothrombin Time 9.7 sec (9.0-12.0)
--- NOTE | 2019-10-30 12:14 | CT ---
EXAMINATION TYPE: CT abdomen pelvis wo con DATE OF EXAM: 10/30/2019 COMPARISON: 05/29/2015 HISTORY: 54-year-old female Hematuria, nausea CT DLP: 762.4 mGycm. Automated exposure control for dose reduction was used. TECHNIQUE: Contiguous axial scanning of the abdomen and pelvis without IV contrast. Coronal and sagit [place] reconstructions performed. FINDINGS: Heart upper limits of normal in size without pericardial effusion. Mild dependent atelectasis in the visualized lung bases. Redemonstrated multiple hepatic cysts, largest measuring 6.1 cm located within the right liver lobe, previously having measured 4.6 cm. Cholecystectomy clips. Adrenal glands and pancreas show no gross abnormality though assessment is limited due to noncontrast technique. Spleen borderline in size at 13.8 cm. Cystic bilateral kidneys redemonstrated. Largest cysts measure 8.2 cm left lower pole, unchanged and 8.6 cm on the right, increased from 8.0 cm. Medial cyst has also increased in size to 7.5 cm from 5.1 cm, previously. Medial upper pole cyst. The pancreatic head anteriorly measuring 4.3 cm versus 3.6 c m, previously. The cystic right kidney is very bulky filling the right side of the abdomen. This seems to be some new fat stranding just above the right kidney, axial image 57. Etiology is uncl ear. Possible 3 mm distal right ureteral calculus, axial image 134. Scattered colonic diverticulosis. No significant stool burden. No pericolonic inflammatory change. Bladder is collapsed. Redemonstrated bulky fibroid uterus with 8.4 cm rounded mass centered within th e uterine body versus 6.6 cm, previously. Numerous pelvic phlebolith. No abnormal fluid collection in the pelvis. No definite suspicious lymphadenopathy seen. Bones: Mild degenerative change at the hips. Mild degenerative change SI joints. No osseous destructi ve process. IMPRESSION: 1. Possible 3 mm distal right ureteral calculus. Correlate for renal colic symptoms. Some mild fat s tranding around the right kidney may be secondary to mild obstructive uropathy. 2. Multicystic kidneys and liver. Renal cysts measure up to 8.6 cm, increased from 8.0 cm. The cysti c right kidney is very bulky with increasing size of cysts and filling the right side of the abdomen with continued mass effect onto the pancreatic head. 3. Bulky uterus, suspect underlying large fibroid measuring 8.4 cm, increased in size from 6.6 cm, p reviously. Given postmenopausal status, nonemergent follow-up pelvic ultrasound or MRI could further evaluate. 4. Generalized colonic diverticulosis without acute diverticulitis.
[2019-10-30] MEDS ORDERED: HYDROmorphone 1 MG/ML 1 ML SYRINGE IVP STA (12:34)
[2019-10-30 12:55] VITALS: BP 163/79
[2019-10-30] MEDS ORDERED: TAMSULOSIN 0.4 MG CAP.ER.24H PO STA (13:22)
[2019-10-30] MEDS ORDERED: ONDANSETRON 4 MG ODT STARTER PACK 2 TAB BTL PO STA (13:41)
[2019-10-30] MEDS ORDERED: ACET/COD 300 MG/30 MG STARTER PACK 6 TAB BTL PO STA (13:41)
== END 2019-10-30 13:50 | disposition home or self-care (01) ==
LOC: EC 10:33
DX: N20.1 Calculus of ureter (principal); D25.9 Leiomyoma of uterus, unspecified; K76.89 Other specified diseases of liver; N28.1 Cyst of kidney, acquired; Z78.0 Asymptomatic menopausal state; Z79.899 Other long term (current) drug therapy; Z90.49 Acquired absence of other specified parts of digestive tract
CPT/HCPCS: 36415; 80053; 82150; 83690; 85025; 85610; 85730; 81001; 87086; 74018; 74176; 99285; 96365; 96375 ×5; 96361; J2270; J2405; J0696; J1885; J1170; S0119; C9113

== ENCOUNTER → 2019-11-12 | Outpatient (CLI) | payer OTHER ==
[2019-11-13 01:36] LABS: African American GFR (CKD) 112.3 (60.0-200.0); Calcium 8.8 mg/dL (8.7-10.3); Carbon Dioxide 25.7 mmol/L (21.6-31.8); Non-African American GFR(CKD) 96.9 (60.0-200.0); Phosphorus 3.6 mg/dL (2.4-5.1); Uric Acid 6.1 mg/dL (2.9-7.7)
== END | disposition home or self-care (01) ==
LOC: LABWHC1 13:54
PROVIDERS: ATTEND Urology
DX: N20.0 Calculus of kidney (principal); N20.1 Calculus of ureter
CPT/HCPCS: 36415; 82310; 82374; 82435; 82565; 83970; 84100; 84550

== ENCOUNTER → 2019-11-15 | Outpatient (CLI) | payer OTHER | END | disposition home or self-care (01) | LOC: LABMAIN 11:39 | PROVIDERS: ATTEND Urology | DX: Z53.9 Procedure and treatment not carried out, unspecified reason (principal) ==

== ENCOUNTER → 2019-12-15 | Outpatient (CLI) | payer OTHER | END | disposition home or self-care (01) | LOC: LABWHC1 11:09 | PROVIDERS: ATTEND Nurse Practitioner Family | DX: Z20.828 Contact with and (suspected) exposure to other viral communicable diseases (principal) | CPT/HCPCS: U0003; C9803 ==

== ENCOUNTER → 2020-01-16 | Outpatient (CLI) | payer OTHER ==
--- NOTE | 2020-01-16 12:18 | US ---
EXAMINATION TYPE: US pelvic complete DATE OF EXAM: 01/16/2020 COMPARISON: NONE CLINICAL HISTORY: 54-year-old female D25.9 Leiomyoma of Uterus. TECHNIQUE: Transabdominal sonographic images of the pelvis were acquired. Transvaginal sonographic i mages were medically necessary to better assess the following anatomy: Date of LMP: Not provided FINDINGS: EXAM MEASUREMENTS: Uterus: 10. x 7.5 x 7.5 cm Endometrial Stripe: 0.2 cm Right Ovary: 2.1 x 1.4 x 1.8 cm Left Ovary: 3.4 x 1.6 x 1.8 cm 1. Uterus: Anteverted. There is a large fibroid along the anterior left uterine body/lower uterine s egment measuring 7.5 x 5.2 x 6.1cm. This appears primarily intramural but may have a submucosal compo nent. A second smaller fibroid may be present posteriorly along the body/lower uterine segment measur ing approximately 3 cm. 2. Endometrium: Normal thickness along the fundus and upper uterine body. Obscured along the lower u terine segment. 3. Right Ovary: wnl 4. Left Ovary: simple appearing cysts/follicles, largest measuring 1.9 x 1.8 x 1.9cm 5. Bilateral Adnexa: wnl 6. Posterior cul-de-sac: wnl IMPRESSION: 1. Bulky fibroid uterus. Dominant fibroid measures 7.5 cm along the left anterior lower uterine segme nt and may have a submucosal component. Suspect a smaller 3 cm posterior fibroid at this level. Femal e pelvic MRI can be used for fibroid mapping if indicated. 2. Small cysts within the left ovary measuring up to 1.9 cm. Follow-up in 6 months to reassess.
== END | disposition home or self-care (01) ==
LOC: RADUSWWP 08:44
PROVIDERS: ATTEND Family Medicine
DX: D25.9 Leiomyoma of uterus, unspecified (principal); N83.202 Unspecified ovarian cyst, left side
CPT/HCPCS: 76856

== ENCOUNTER → 2020-08-06 | Outpatient (CLI) | payer OTHER ==
--- NOTE | 2020-08-06 14:14 | CT ---
EXAMINATION TYPE: CT abdomen pelvis wo/w con DATE OF EXAM: 08/06/2020 COMPARISON: HISTORY: renal cysts CT DLP: 1702.7 mGycm CONTRAST: CT scan of the abdomen and pelvis is performed with Oral Contrast and without and with IV Contrast, p atient injected with 100 mL of Isovue 300. FINDINGS: LUNG BASES-: No visible nodule. No infiltrate. LIVER/GB: The gallbladder is surgically absent. Multiple hepatic cysts are redemonstrated. Biliary tree is of normal caliber. PANCREAS: No inflammation. No distinct mass. SPLEEN: No splenic enlargement. No lesion seen. ADRENALS: No nodule. No thickening. KIDNEYS/BLADDER: No hydronephrosis. No nephrolithiasis. Innumerable bilateral scattered renal cysts noted compatible with autosomal dominant polycystic kidney disease. Urinary bladder grossly unremark able. BOWEL: Normal appendix. Normal bowel caliber. No inflammation. GENITAL ORGANS: Enlarged lobulated uterus with underlying mass. This may reflect leiomyomatous avila e although mass of other etiology is not excluded. LYMPH NODES: No greater than 1cm abdominal or pelvic lymph nodes are appreciated. AORTA: No significant abnormality. OSSEOUS STRUCTURES: No significant abnormality is seen. OTHER: No significant additional abnormality is seen. IMPRESSION: 1. Enlarged lobulated uterus with underlying mass. This may reflect leiomyomatous change although mas s of other etiology is not excluded. 2. Autosomal dominant polycystic kidney disease. 3. Innumerable hepatic cysts.
== END | disposition home or self-care (01) ==
LOC: RADCTMAIN 11:06
PROVIDERS: ATTEND Urology
DX: Q61.2 Polycystic kidney, adult type (principal); K76.89 Other specified diseases of liver; N85.8 Other specified noninflammatory disorders of uterus
CPT/HCPCS: 74178; Q9967

== ENCOUNTER → 2020-09-01 | Outpatient (CLI) | payer OTHER ==
[2020-09-02 18:58] LABS: African American GFR (CKD) 72.4 (60.0-200.0); Anion Gap 14.5 mmol/L (4.00-12.00); Calcium 9.8 mg/dL (8.7-10.3); Carbon Dioxide 20.5 mmol/L (21.6-31.8); Non-African American GFR(CKD) 62.5 (60.0-200.0); Potassium 4.4 mmol/L (3.5-5.5)
== END ==
LOC: LABWHC1 13:42
PROVIDERS: ATTEND Urology
DX: Q61.2 Polycystic kidney, adult type (principal)
CPT/HCPCS: 36415; 80048

== ENCOUNTER → 2021-07-28 | Outpatient (CLI) | payer OTHER ==
[2021-07-28 15:29] LABS: Basophils # (A) 0.04 X 10*3/uL (0.00-0.10); Basophils % (A) 0.9 %; Eosinophils # (A) 0.13 X 10*3/uL (0.04-0.35); Eosinophils % (A) 2.9 %; HCT 43.3 % (37.2-46.3); Immature Grans, Automated 0.4 %; Lymphocytes # (A) 1.48 X 10*3/uL (0.90-5.00); Lymphocytes % (A) 32.5 %; MCH 29.7 pg (27.0-32.0); MCHC 32.3 g/dL (32.0-37.0); MCV 91.7 fL (80.0-97.0); Mean Platelet Volume 10.8 fL (9.5-12.2); Monocytes # (A) 0.27 X 10*3/uL (0.20-1.00); Monocytes % (A) 5.9 %; NRBC Per 100 WBC 0 /100 WBCS (0.0-0.0); Neutrophils # (A) 2.61 X 10*3/uL (1.80-7.70); Neutrophils % (A) 57.4 %; Platelet Count 194 X 10*3/uL (140-440); RBC 4.72 X 10*6/uL (4.10-5.20); RDW 13.2 % (11.5-14.5); WBC 4.55 X 10*3/uL (4.50-10.00)
== END | disposition home or self-care (01) ==
LOC: LABPAT 09:21
PROVIDERS: ATTEND Obstetrics & Gynecology
DX: Z01.812 Encounter for preprocedural laboratory examination (principal); N95.0 Postmenopausal bleeding
CPT/HCPCS: 36415; 85025; 93005

== ENCOUNTER 2021-08-02 06:47 | Day surgery (SDC) | payer OTHER ==
--- NOTE | 2021-08-01 16:29 | HP ---
HISTORY AND PHYSICAL DATE OF SURGERY: 08/02/2021 This is a 56-year-old female, 3, para 2-0-1-2, who presented to the office with a history of postmenopausal bleeding. Endometrial biopsy was attempted in the office; however, secondary to patient's extreme discomfort, the procedure was terminated. Therefore we have scheduled hysteroscopy and D and C at [facility]. All risks and benefits of the procedure, bleeding, infection, anesthetic risks, perforation all discussed and reviewed. All questions answered. PAST MEDICAL HISTORY: Significant for hypertension, hypothyroidism, renal stones, renal cysts, gallstones, rosacea, dry eyes. PAST SURGICAL HISTORY: Cholecystectomy, colonoscopy, herniorrhaphy, tubal ligation. MEDICATIONS: Medications include fenofibrate 160 mg tabs once daily, levothyroxine 25 mcg once daily, Micardis 40 mg tabs once daily, minocycline 100 mg tabs twice a day. ALLERGIES: NONE KNOWN. FAMILY HISTORY: Significant for lung cancer in her father, kidney disease in her sister, diverticulitis in her mother, and breast cancer in another sister. REPRODUCTIVE HISTORY: Significant for normal spontaneous vaginal deliveries x2, missed AB x1. SOCIAL HISTORY: The patient drinks coffee daily. 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 Ophthalmology. She has never been a smoker. Social alcohol only. She is single. REVIEW OF SYSTEMS: Otherwise negative. PHYSICAL EXAMINATION: Patient is 5 feet 3 inches, 184 pounds, blood pressure 132/70, pulse 88. HEENT exam reveals no thyromegaly, no cervical lymphadenopathy, good dentition. Chest is clear to auscultation in all herman anteriorly and posteriorly. Breasts are symmetric. No skin changes, nipple discharge or adenopathy noted. No lesions. Abdomen is soft, nontender. Active bowel sounds. No organosplenomegaly. Cardiac exam reveals regular rate and rhythm without murmur, click or rub. Extremities reveal no edema, good peripheral pulses, normal range of motion x4. Neurologic exam is intact, alert and oriented. Appropriate affect. IMPRESSION: Postmenopausal bleeding, unable to tolerate office endometrial sampling. Here now for hysteroscopy, dilation and curettage. PLAN: All risks and benefits of the procedure have been discussed with the patient in detail. All questions answered. The ACOG pamphlet on these procedures have been given to the patient and thoroughly reviewed. I believe the patient understands risks and benefits with no further discussion or question. MMODL / IJN: [id number] /
[~2021-08-02 06:47] MED LIST: Pre Op ABX Message 1 EACH MISC MISCELLANE ONE
[2021-08-02] MEDS ORDERED: HYDROmorphone 0.5 MG/0.5 ML SYRINGE IVP PRN (07:04)
[2021-08-02] MEDS ORDERED: LIDOCAINE 1% (10MG/ML) FOR IV START INTRADERMA PRN (07:04)
[2021-08-02] MEDS ORDERED: ONDANSETRON 4 MG/2 ML VIAL IVP ONE (07:04)
[2021-08-02] MEDS ORDERED: SCOPOLAMINE 1.5MG/72HR PATCH TRANSDERM ONE (07:04)
[2021-08-02] MEDS ORDERED: DEXAMETHASONE SOD PHOSPHATE 4 MG/ML 1 ML VIAL IV ONE (07:04)
[2021-08-02 07:34] VITALS: TEMP 97.5
[2021-08-02] MEDS: LACTATED RINGERS 1,000 ML IV SCH ×2 (07:45→10:00)
[2021-08-02] MEDS ORDERED: KETOROLAC 15 MG/ML 1 ML VIAL ONE (08:12)
[2021-08-02] MEDS ORDERED: LIDOCAINE 1% INJ 10MG/ML (20 ML MDV) ONE (08:12)
[2021-08-02] MEDS ORDERED: MIDAZOLAM 2 MG/2 ML VIAL ONE (08:12)
[2021-08-02] MEDS ORDERED: PROPOFOL 10 MG/ML 20 ML VIAL IV ONE (08:12)
[2021-08-02] MEDS ORDERED: fentaNYL (PF) 50 MCG/ML 2 ML AMP ONE (08:12)
--- NOTE | 2021-08-02 08:53 | P.OP ---
Date of Procedure: 08/02/21 Preoperative Diagnosis: Post menopausal bleeding Postoperative Diagnosis: Intrauterine synechia, grade 3 rectocele Procedure(s) Performed: Hysteroscopy, D and C Anesthesia: GONZALO Surgeon: Kathi Reyes Estimated Blood Loss (ml): 25 IV fluids (ml): 400 Urine output (ml): 200 Pathology: other (Intrauterine curettings) Condition: stable Operative Findings: There is a grade 3 rectocele noted. Upon inspection, intrauterine synechiae are noted. No obvious polyps, fibroids, tumors. Description of Procedure: Patient is brought to the operating suite where a general anesthetic is administered without difficulty. She's placed in the dorsal lithotomy position. The cervix, vagina, perineal bodies are all prepped and draped in usual sterile fashion. The appropriate timeout is performed to assure proper patient and procedural identification. Examination under anesthesia reveals a grade 3 rectocele, a mobile anteverted uterus, negative adnexa bilaterally. Weighted speculum was placed into the vagina. Anterior lip of the cervix is grasped with a double-tooth tenaculum. The bladder is drained for approximately 200 mL of clear yellow urine. There is dark blood noted on the external cervical os. The uterus sounds to a depth of 8 cm in the anteverted position. The cervix is gently and systematically dilated using Hanks dilators. Hysteroscope is then placed and the cavity is infused with sterile saline. There are flimsy-appearing intrauterine whyte, or synechia noted throughout. No obvious polyps, fibroids, tumors. Hysteroscope was removed. A medium sharp curette is used in all 4 quadrants to remove the intrauterine tissues. When this is complete the hysteroscope is reintroduced and the cavity is once again inspected. It appears clear at this time. All sponge needle and enhancement counts are correct. Total estimated blood loss 25 mL's. Patient is brought back to recovery room in very good condition with stable vital signs including blood pressure 143/90, pulse 73, 99% O2 saturation. Toradol is given prior to leaving the operative suite. Written instructions are provided. Patient will follow-up with me in the office in 2 weeks. Motrin Advil or Aleve recommended for postoperative pain.
[2021-08-02 10:30] VITALS: BP 123/56; PULSE 60; RESP 16
== END 2021-08-02 10:35 | disposition home or self-care (01) ==
LOC: OR 06:47
PROVIDERS: ATTEND Obstetrics & Gynecology
DX: N95.0 Postmenopausal bleeding (principal); N92.4 Excessive bleeding in the premenopausal period; N85.6 Intrauterine synechiae; N81.6 Rectocele; I10 Essential (primary) hypertension; E78.5 Hyperlipidemia, unspecified; E03.9 Hypothyroidism, unspecified; Z87.442 Personal history of urinary calculi; L71.9 Rosacea, unspecified; Q61.3 Polycystic kidney, unspecified; H04.129 Dry eye syndrome of unspecified lacrimal gland; Z90.49 Acquired absence of other specified parts of digestive tract; Z98.51 Tubal ligation status; Z98.890 Other specified postprocedural states; Z80.1 Family history of malignant neoplasm of trachea, bronchus and lung; Z84.1 Family history of disorders of kidney and ureter; Z80.3 Family history of malignant neoplasm of breast; Z83.79 Family history of other diseases of the digestive system; Z79.890 Hormone replacement therapy; Z79.899 Other long term (current) drug therapy
CPT/HCPCS: 88305; 58558; J2250; J2001; J3010; J1885; J2704

== ENCOUNTER 2023-01-29 10:07 | Observation (INO) | payer OTHER ==
[2023-01-29 10:51] LABS: Basophils % (A) 1 %; Eosinophils # (A) 0.1 k/uL (0-0.7); Eosinophils % (A) 2 %; HCT 42.3 % (34.0-46.0); HGB 14.6 gm/dL (11.4-16.0); Lymphocytes # (A) 1.5 k/uL (1.0-4.8); Lymphocytes % (A) 25 %; MCH 30.2 pg (25.0-35.0); MCHC 34.4 g/dL (31.0-37.0); MCV 87.7 fL (80.0-100.0); Mean Platelet Volume 8.3; Monocytes # (A) 0.3 k/uL (0-1.0); Monocytes % (A) 5 %; Neutrophils # (A) 3.9 k/uL (1.3-7.7); Neutrophils % (A) 66 %; Platelet Count 182 k/uL (150-450); RBC 4.82 m/uL (3.80-5.40); RDW 13.8 % (11.5-15.5); WBC 5.9 k/uL (3.8-10.6)
[2023-01-29 10:59] LABS: ALT 30 U/L (4-34); AST 29 U/L (14-36); African American GFR (CKD) >90 (>60 ml/min/1.73 sqM); Alkaline Phosphatase 64 U/L (38-126); Anion Gap 5 mmol/L; Blood Urea Nitrogen 25 mg/dL (7-17); Carbon Dioxide 26 mmol/L (22-30); Chloride 109 mmol/L (98-107); Glucose 85 mg/dL (74-99); Magnesium 1.8 mg/dL (1.6-2.3); Non-African American GFR(CKD) 87 (>60 ml/min/1.73 sqM); Potassium 4.1 mmol/L (3.5-5.1); Sodium 140 mmol/L (137-145); Total Bilirubin 0.5 mg/dL (0.2-1.3); Total Protein 6.9 g/dL (6.3-8.2)
[2023-01-29 11:06] LABS: INR 0.9 (<1.2); Partial Thromboplastin Time 23.6 sec (22.0-30.0); Prothrombin Time 10.1 sec (9.0-12.0)
--- NOTE | 2023-01-29 11:11 | XR ---
EXAMINATION TYPE: XR chest 2V DATE OF EXAM: 01/29/2023 11:02 AM COMPARISON: Chest radiographs from 04/03/2019 TECHNIQUE: XR chest 2V Frontal and lateral views of the chest. CLINICAL INDICATION:Female, 57 years old with history of Chest Pain; FINDINGS: Lungs/Pleura: There is no evidence of pleural effusion, focal consolidation, or pneumothorax. Pulmonary vascularity: Unremarkable. Heart/mediastinum: Cardiomediastinal silhouette is unremarkable. Musculoskeletal: No acute osseous pathology. Other: Cholecystectomy clips in the right upper quadrant. IMPRESSION: No acute cardiopulmonary disease/process.
[2023-01-29] MEDS ORDERED: NITROGLYCERIN OINT 1 INCH/GM PACKET TOPICAL STA (13:07)
[2023-01-29] MEDS ORDERED: ASPIRIN 81 MG PO STA (13:07)
--- NOTE | 2023-01-29 13:07 | ED ---
General Adult HPI - General Chief complaint: Chest Pain Stated complaint: High BP, sent by PCP Time Seen by Provider: 01/29/23 12:52 Source: patient, RN notes reviewed Mode of arrival: ambulatory Limitations: no limitations - History of Present Illness Initial comments: Patient is a pleasant 57-year-old female presenting to the emergency department with concerns with chest discomfort. Onset of symptoms was this morning. Patient took her blood pressure at work and was high and to her 3 readings. Blood pressure was as high as 201/99. Patient has distant history of hypertension however does not currently take any medication secondary to improvement of her blood pressure previously. Discomfort only lasted for a few minutes and it feels somewhat sharp. No radiation. No dyspnea. No nausea no diaphoresis. Patient has felt lightheaded and continues to feel somewhat lightheaded. - Related Data Home Medications Medication Instructions Recorded Confirmed Minocycline HCl [Minocin] 100 mg PO HS PRN 05/29/15 08/02/21 Telmisartan [Micardis] 40 mg DAILY 04/03/19 08/02/21 Previous Rx's Medication Instructions Recorded Atorvastatin Calcium [Lipitor] 10 mg PO DAILY #30 tab 04/04/19 Allergies Allergy/AdvReac Type Severity Reaction Status Date / Time No Known Allergies Allergy Verified 01/29/23 10:15 Review of Systems ROS Statement: Those systems with pertinent positive or pertinent negative responses have been documented in the HPI. ROS Other: All systems not noted in ROS Statement are negative. Constitutional: Denies: fever Eyes: Denies: eye pain ENT: Denies: ear pain Respiratory: Denies: cough, dyspnea Cardiovascular: Reports: as per HPI, chest pain Gastrointestinal: Denies: nausea, vomiting Musculoskeletal: Denies: back pain Past Medical History Past Medical History: No Reported History Additional Past Medical History / Comment(s): kidney stones, "hole in kidney" History of Any Multi-Drug Resistant Organisms: None Reported Past Surgical History: Cholecystectomy, Hernia Repair Additional Past Surgical History / Comment(s): drainage of renal abscess Past Anesthesia/Blood Transfusion Reactions: No Reported Reaction Past Psychological History: Anxiety Smoking Status: Never smoker Past Alcohol Use History: None Reported Past Drug Use History: None Reported - Past Family History Father Family Medical History: Cancer Additional Family Medical History / Comment(s): Father had exposure to asbestos. Mother Family Medical History: Hyperlipidemia, Hypertension Additional Family Medical History / Comment(s): Mother had diverticular disease. Sister(s) Family Medical History: Diabetes Mellitus, Myocardial Infarction (TN) Additional Family Medical History / Comment(s): One sister had a TN at the age of 48yrs. Another sister had renal failure, breast cancer, diabetes and CABG at the age of 65yrs-she is . General Exam Limitations: no limitations General appearance: alert, in no apparent distress Head exam: Present: normocephalic Eye exam: Present: normal appearance Neck exam: Present: normal inspection Respiratory exam: Present: normal lung sounds bilaterally Cardiovascular Exam: Present: regular rate, normal rhythm Expanded Peripheral pulses: 2+: Radial (R), Radial (L), Posterior Tibialis (R), Posterior Tibialis (L) GI/Abdominal exam: Present: soft. Absent: tenderness Extremities exam: Present: normal inspection. Absent: pedal edema, calf tenderness Neurological exam: Present: alert Psychiatric exam: Present: normal affect, normal mood Skin exam: Present: normal color Course Vital Signs 01/29/23 10:13 Temperature 98.4 F Pulse Rate 75 Respiratory 20 Rate Blood Pressure 195/105 O2 Sat by Pulse 97 Oximetry EKG Findings - EKG Results: EKG: interpreted by ERMD, sinus rhythm, normal axis, normal QRS, normal ST/T Medical Decision Making - Medical Decision Making Was pt. sent in by a medical professional or institution (Dr. PA, ACCESS DEVELOPER, urgent care, hospital, or penitentiary...) When possible be specific @ -No Did you speak to anyone other than the patient for history (EMS, parent, family, police, friend...)? What history was obtained from this source @ -No Did you review nursing and triage notes (agree or disagree)? Why? @ -I reviewed and agree with nursing and triage notes Were old charts reviewed (outside hosp., previous admission, EMS record, old EKG, old radiological studies, urgent care reports/EKG's, penitentiary records)? Report findings @ -No old charts were reviewed Differential Diagnosis (chest pain, altered mental status, abdominal pain women, abdominal pain men, vaginal bleeding, weakness, fever, dyspnea, syncope, headache, dizziness, GI bleed, back pain, seizure, CVA, palpatations, mental health, musculoskeletal)? @ -Differential Chest Pain: Stable Angina, Unstable Angina, STEMI, NSTEMI Aortic Dissection, Pneumothorax, Musculoskeletal, Esophageal Spasm GERD, Cholecystitis, Pancreatitis, Zoster, this is not meant to be an all-inclusive list. EKG interpreted by me (3pts min.). @ -As above X-rays interpreted by me (1pt min.). @ -Chest x-ray reveals no acute process CT interpreted by me (1pt min.). @ -None done U/S interpreted by me (1pt. min.). @ -None done What testing was considered but not performed or refused? (CT, X-rays, U/S, labs)? Why? @ -D-dimer will be added What meds were considered but not given or refused? Why? @ -None Did you discuss the management of the patient with other professionals (professionals i.e. , PA, ACCESS DEVELOPER, lab, RT, psych nurse, hospice social worker, reinforcing metal worker, teacher, deck officer, case repairer)? Give summary @ -Case was discussed with Dr. Houston will admit for Dr. Beach Was smoking cessation discussed for >3mins.? @ -No Was critical care preformed (if so, how long)? @ -No Were there social determinants of health that impacted care today? How? (Homelessness, low income, unemployed, alcoholism, drug addiction, transportat ion, low edu. Level, literacy, decrease access to med. care, group home, rehab)? @ -No Was there de-escalation of care discussed even if they declined (Discuss DNR or withdrawal of care, Hospice)? DNR status @ -No What co-morbidities impacted this encounter? (DM, HTN, Smoking, COPD, CAD, Cancer, CVA, ARF, Chemo, Hep., AIDS, mental health diagnosis, sleep apnea, morbid obesity)? @ -None Was patient admitted / discharged? Hospital course, mention meds given and route, prescriptions, significant lab abnormalities, going to OR and other pertinent info. @ -Patient is made aware of results and plan. Patient will be admitted. Admission orders written. Cardiology will be placed on consult. Blood pressure will need to be monitored. Nitro paste ordered to start. Undiagnosed new problem with uncertain prognosis? @ -No Drug Therapy requiring intensive monitoring for toxicity (Heparin, Nitro, Insulin, Cardizem)? @ -No Were any procedures done? @ -No Diagnosis/symptom? @ -Chest pain, hypertension Acute, or Chronic, or Acute on Chronic? @ -Acute, acute on chronic Uncomplicated (without systemic symptoms) or Complicated (systemic symptoms)? @ -default Side effects of treatment? @ -No Exacerbation, Progression, or Severe Exacerbation? @ -No Poses a threat to life or bodily function? How? (Chest pain, [place], [place], pneumonia, PE, COPD, DKA, ARF, appy, cholecystitis, CVA, Diverticulitis, Homicidal, Suicidal, threat to staff... and all critical care pts) @ -Hypertension and chest pain have potential for cardiac damage - Lab Data Result diagrams: 01/29/23 10:38 01/29/23 10:38 Lab Results 01/29/23 01/29/23 01/29/23 Range/Units 10:38 10:38 10:38 WBC 5.9 (3.8-10.6) k/uL RBC 4.82 (3.80-5.40) m/uL Hgb 14.6 (11.4-16.0) gm/dL Hct 42.3 (34.0-46.0) % MCV 87.7 (80.0-100.0) fL MCH 30.2 (25.0-35.0) pg MCHC 34.4 (31.0-37.0) g/dL RDW 13.8 (11.5-15.5) % Plt Count 182 (150-450) k/uL MPV 8.3 Neutrophils % 66 % Lymphocytes % 25 % Monocytes % 5 % Eosinophils % 2 % Basophils % 1 % Neutrophils # 3.9 (1.3-7.7) k/uL Lymphocytes # 1.5 (1.0-4.8) k/uL Monocytes # 0.3 (0-1.0) k/uL Eosinophils # 0.1 (0-0.7) k/uL Basophils # 0.0 (0-0.2) k/uL PT 10.1 (9.0-12.0) sec INR 0.9 (<1.2) APTT 23.6 (22.0-30.0) sec Sodium 140 (137-145) mmol/L Potassium 4.1 (3.5-5.1) mmol/L Chloride 109 H (98-107) mmol/L Carbon Dioxide 26 (22-30) mmol/L Anion Gap 5 mmol/L BUN 25 H (7-17) mg/dL Creatinine 0.76 (0.52-1.04) mg/dL Est GFR (CKD-EPI)AfAm >90 (>60 ml/min/1.73 sqM) Est GFR (CKD-EPI)NonAf 87 (>60 ml/min/1.73 sqM) Glucose 85 (74-99) mg/dL Calcium 9.0 (8.4-10.2) mg/dL Magnesium 1.8 (1.6-2.3) mg/dL Total Bilirubin 0.5 (0.2-1.3) mg/dL AST 29 (14-36) U/L ALT 30 (4-34) U/L Alkaline Phosphatase 64 (38-126) U/L Troponin I (0.000-0.034) ng/mL Total Protein 6.9 (6.3-8.2) g/dL Albumin 4.0 (3.5-5.0) g/dL 01/29/23 Range/Units 10:38 WBC (3.8-10.6) k/uL RBC (3.80-5.40) m/uL Hgb (11.4-16.0) gm/dL Hct (34.0-46.0) % MCV (80.0-100.0) fL MCH (25.0-35.0) pg MCHC (31.0-37.0) g/dL RDW (11.5-15.5) % Plt Count (150-450) k/uL MPV Neutrophils % % Lymphocytes % % Monocytes % % Eosinophils % % Basophils % % Neutrophils # (1.3-7.7) k/uL Lymphocytes # (1.0-4.8) k/uL Monocytes # (0-1.0) k/uL Eosinophils # (0-0.7) k/uL Basophils # (0-0.2) k/uL PT (9.0-12.0) sec INR (<1.2) APTT (22.0-30.0) sec Sodium (137-145) mmol/L Potassium (3.5-5.1) mmol/L Chloride (98-107) mmol/L Carbon Dioxide (22-30) mmol/L Anion Gap mmol/L BUN (7-17) mg/dL Creatinine (0.52-1.04) mg/dL Est GFR (CKD-EPI)AfAm (>60 ml/min/1.73 sqM) Est GFR (CKD-EPI)NonAf (>60 ml/min/1.73 sqM) Glucose (74-99) mg/dL Calcium (8.4-10.2) mg/dL Magnesium (1.6-2.3) mg/dL Total Bilirubin (0.2-1.3) mg/dL AST (14-36) U/L ALT (4-34) U/L Alkaline Phosphatase (38-126) U/L Troponin I <0.012 (0.000-0.034) ng/mL Total Protein (6.3-8.2) g/dL Albumin (3.5-5.0) g/dL Disposition Clinical Impression: Chest pressure, Hypertension Disposition: ADMITTED IP TO THIS HOSP Is patient prescribed a controlled substance at d/c from ED?: No Referrals: Adithya Beach DO [Primary Care Provider] - 1-2 days Time of Disposition: 13:07
[2023-01-29] MEDS ORDERED: NITROGLYCERIN SL TABS 0.4 MG TAB SUBLINGUAL PRN (13:13)
[2023-01-29] MEDS: METOPROLOL TARTRATE 25 MG TAB PO SCH ×2 (13:23→20:15)
[2023-01-29] MEDS ORDERED: ALPRAZolam 0.25 MG TAB PO PRN (16:16)
[2023-01-29] MEDS ORDERED: TEMAZEPAM 15 MG CAP PO PRN (16:16)
[2023-01-29] MEDS: amLODIPine 10 MG TAB PO SCH (16:34)
[2023-01-29] MEDS ORDERED: ACETAMINOPHEN TAB 325 MG TAB PO PRN (19:32)
[2023-01-29] MEDS: NITROGLYCERIN OINT 1 INCH/GM PACKET TOPICAL SCH ×2 (19:46→23:16)
[2023-01-29] MEDS ORDERED: LEVOTHYROXINE 25 MCG TAB PO SCH (21:00)
--- NOTE | 2023-01-29 23:22 | HP ---
HISTORY AND PHYSICAL CHIEF COMPLAINT: Chest pain, high blood pressure. HISTORY OF PRESENT ILLNESS: This is a 57-year-old woman with a past medical history of kidney stones, was admitted with chest pain, felt mostly in the central part of chest, is radiating to the backwards, and elevated blood pressure. The patient under some stress because of her daughter's impending wedding according to her. Blood pressure was 201/99. There is no history of any fever, rigors, or chills. PAST MEDICAL HISTORY: Reviewed include nephrolithiasis. Rest of the history and rest of the chart is also reviewed. HOME MEDICATIONS: Reviewed include levothyroxine. Dose and rest of medications reviewed. ALLERGIES: None. FAMILY HISTORY: n SOCIAL HISTORY: No history of smoking or alcohol intake. REVIEW OF SYSTEMS: A 14-point review is negative except as mentioned earlier. PHYSICAL EXAMINATION: VITAL SIGNS: Pulse 64, blood pressure 180/99, respirations 18. HEENT: Conjunctivae normal. NECK: No JVD. CARDIOVASCULAR: S1, S2. RESPIRATIONS: Breath sounds diminished at the bases. No rhonchi. No crackles. ABDOMEN: Soft, nontender. LEGS: No edema. NERVOUS SYSTEM: Nonfocal. SKIN: No ulcer, rash, or bleeding. JOINTS: No active deforming arthropathy. LABORATORY DATA: Reviewed. ASSESSMENT: 1. Chest pain, rule out unstable angina. 2. Accelerated hypertension. 3. Nephrolithiasis. 4. Cholecystectomy. 5. History of anxiety. RECOMMENDATIONS AND DISCUSSION: This is a 57-year-old woman, who presented with multiple complex medical issues, we will monitor the patient closely. I would recommend continue with metoprolol, add Norvasc to the current regimen. Cardiology consultation. The patient had multiple recent stress test about 6 months ago according to her. We will continue to monitor. Prognosis guarded. Further recommendations to follow. MMODL / IJN: [id number] / MTDKirstin
[2023-01-30] MEDS: NITROGLYCERIN OINT 1 INCH/GM PACKET TOPICAL SCH (05:34)
[2023-01-30] MEDS: amLODIPine 10 MG TAB PO SCH (08:16)
[2023-01-30] MEDS: METOPROLOL TARTRATE 25 MG TAB PO SCH (08:16)
[2023-01-30 08:42] VITALS: BP 163/83; PULSE 65; RESP 16; TEMP 97.8
[2023-01-30 08:48] LABS: Basophils # (A) 0.05 X 10*3/uL (0.00-0.10); Basophils % (A) 0.8 %; Eosinophils # (A) 0.15 X 10*3/uL (0.04-0.35); Eosinophils % (A) 2.4 %; HCT 40.6 % (37.2-46.3); HGB 13.8 d/dL (12.0-15.0); Lymphocytes # (A) 1.53 X 10*3/uL (0.90-5.00); MCH 29.7 pg (27.0-32.0); MCV 87.3 FL (80.0-97.0); Mean Platelet Volume 10.4 FL (9.5-12.2); Monocytes # (A) 0.52 X 10*3/uL (0.20-1.00); Monocytes % (A) 8.5 %; NRBC Per 100 WBC 0 X 10*3/uL (0.00-0.01); Neutrophils # (A) 3.83 X 10*3/uL (1.80-7.70); Neutrophils % (A) 62.5 %; Platelet Count 173 X 10*3/uL (140-440); RBC 4.65 X 10*6/uL (4.10-5.20); RDW 13.3 % (11.5-14.5); WBC 6.13 X 10*3/uL (4.50-10.00)
[2023-01-30 08:56] LABS: Blood Urea Nitrogen 21.2 mg/dL (9.0-27.0); Calcium 8.5 mg/dL (8.7-10.3); Carbon Dioxide 23.8 mmol/L (21.6-31.8); Chloride 108 mmol/L (96-109); Chol/HDL Ratio 5.63 Ratio; Glucose 93 mg/dL (70-110); LDL Cholesterol,Calculated 101.2 mg/dL (0.0-131.0); Potassium 4.3 mmol/L (3.5-5.5); Sodium 140 mmol/L (135-145)
[2023-01-30] MEDS ORDERED: ASPIRIN 325 MG TAB PO SCH (09:00)
--- NOTE | 2023-01-30 10:35 | P.CRDCN ---
History of Present Illness Consult date: 01/30/23 Consult reason: chest pain History of present illness: History of present illness: This is a 57-year-old female patient with past medical history of hypertension but has been off medication, strong family history of premature coronary artery disease, history of polycystic kidney disease, nonsmoker. We have been asked to evaluate the patient for chest pain and hypertension. Patient states that yesterday while she was at work she was not feeling well and her blood pressure was checked at 201/99. She also states that yesterday she woke up due to chest pain in the middle of her chest that was there briefly and went away. She states she has had some palpitations on and off and yesterday she did have some palpitations and nausea. She denies any symptoms at this time. Patient has been started on amlodipine and Lopressor and blood pressure significantly improved. Initially she was 195/105 and a blood pressure 125/64. EKG Chest x-ray: CBC normal. Electrolytes and renal function normal. Glucose 93. Troponin negative 3. Liver function tests are normal. Triglycerides 263, cholesterol 187, LDL 101, HDL 33. Home cardiac medications: Levothyroxine 25 g at bedtime Echocardiogram 03/2019 revealed EF of 60-65%, mild concentric left ventricular hypertrophy. Stress echocardiogram 03/2019 was negative with fair exercise capacity. Normal stress echocardiogram. Review Of Systems: At the time of my evaluation: Constitutional: No fever, no chills. No weakness, fatigue or lethargy. EENT: No headache. No dizziness. Lungs: No shortness of breath, cough, no sputum production. No wheezing. Cardiovascular: No chest pain, no lower extremity edema. No palpitations. No paroxysmal nocturnal dyspnea. No orthopnea. No lightheadedness or dizziness. No syncopal episodes. Abdominal: No abdominal pain. No nausea, vomiting. No diarrhea. No constipation. No bloody or tarry stools. Genitourinary: No dysuria.. No urinary retention. Musculoskeletal: No myalgias. No muscle weakness, no frequent falls. No back pain. No neck pain. Integumentary: No wounds. No rash. No unusual bruising. Neurologic: No aphasia. No facial droop. No change in mentation. No head injury. No headache. Physical examination: Gen: This is a 57-year-old female. She is resting in bed appears comfortable and in no acute distress VS: reviewed HEENT: Head is atraumatic, normocephalic. Pupils equal, round. Sclerae is anicteric. NECK: Supple. No JVD. LUNGS: Clear to auscultation. No wheezes or rhonchi. No intercostal retracti ons. HEART: Regular rate and rhythm. No murmur. ABDOMEN: Soft No tenderness. EXTREMITIES: No pedal edema. No calf tenderness. NEUROLOGICAL: Patient is awake, alert and oriented x3. Assessment: Uncontrolled hypertension Hyper triglyceridemia Plan: Continue current antihypertensive medications Discontinue Nitropaste Obtain 2-D echocardiogram and Doppler study to assess cardiac structure and function Patient follow-up in the office for outpatient stress testing and possible event monitor. Thank you kindly for this consultation. Nurse practitioner note has been reviewed, I agree with documented findings and plan of care. Patient was seen and examined. Past Medical History Past Medical History: No Reported History Additional Past Medical History / Comment(s): kidney stones, "hole in kidney", polycystic kidney disease History of Any Multi-Drug Resistant Organisms: None Reported Past Surgical History: Cholecystectomy, Hernia Repair Additional Past Surgical History / Comment(s): drainage of renal abscess Past Anesthesia/Blood Transfusion Reactions: No Reported Reaction Past Psychological History: Anxiety Additional Psychological History / Comment(s): Pt resides with her significant other. She is independent. Smoking Status: Never smoker Past Alcohol Use History: None Reported Past Drug Use History: None Reported - Past Family History Father Family Medical History: Cancer Additional Family Medical History / Comment(s): Father had exposure to asbestos. Mother Family Medical History: Hyperlipidemia, Hypertension Additional Family Medical History / Comment(s): Mother had diverticular disease. Sister(s) Family Medical History: Diabetes Mellitus, Myocardial Infarction ([place]) Additional Family Medical History / Comment(s): One sister had a MA at the age of 48yrs. Another sister had renal failure, breast cancer, diabetes and CABG at the age of 65yrs-she is . Medications and Allergies Home Medications Medication Instructions Recorded Confirmed Type Minocycline HCl [Minocin] 100 mg PO BID PRN 05/29/15 01/29/23 History Balance Of Nature Fruits And 6 tab PO DAILY 01/29/23 01/29/23 History Vegetables Levothyroxine Sodium [Synthroid] 25 mcg PO HS 01/29/23 01/29/23 History Allergies Allergy/AdvReac Type Severity Reaction Status Date / Time No Known Allergies Allergy Verified 01/29/23 10:15 Physical Exam Vitals: Vital Signs Temp Pulse Pulse Resp BP BP Pulse Ox 01/30/23 02:45 97.7 F 56 L 13 125/64 96 01/30/23 01:00 86 01/29/23 21:00 98.2 F 86 16 131/75 97 01/29/23 20:15 64 18 155/95 97 01/29/23 19:44 77 18 151/91 94 L 01/29/23 16:18 64 16 168/102 95 01/29/23 13:10 64 18 180/109 98 01/29/23 10:13 98.4 F 75 20 195/105 97 Intake and Output 01/29/23 01/30/23 01/30/23 22:59 06:59 14:59 Other: Voiding Method Toilet # Voids 1 2 Weight 82.554 kg Results 01/30/23 05:24 01/30/23 05:24 Cardiac Enzymes 01/29/23 01/29/23 01/29/23 Range/Units 10:38 10:38 14:59 AST 29 (14-36) U/L Troponin I <0.012 <0.012 (0.000-0.034) ng/mL 01/29/23 Range/Units 17:45 AST (14-36) U/L Troponin I <0.012 (0.000-0.034) ng/mL Coagulation 01/29/23 Range/Units 10:38 PT 10.1 (9.0-12.0) sec APTT 23.6 (22.0-30.0) sec CBC 01/29/23 Range/Units 10:38 WBC 5.9 (3.8-10.6) k/uL RBC 4.82 (3.80-5.40) m/uL Hgb 14.6 (11.4-16.0) gm/dL Hct 42.3 (34.0-46.0) % Plt Count 182 (150-450) k/uL Comprehensive Metabolic Panel 01/29/23 Range/Units 10:38 Sodium 140 (137-145) mmol/L Potassium 4.1 (3.5-5.1) mmol/L Chloride 109 H (98-107) mmol/L Carbon Dioxide 26 (22-30) mmol/L BUN 25 H (7-17) mg/dL Creatinine 0.76 (0.52-1.04) mg/dL Glucose 85 (74-99) mg/dL Calcium 9.0 (8.4-10.2) mg/dL AST 29 (14-36) U/L ALT 30 (4-34) U/L Alkaline Phosphatase 64 (38-126) U/L Total Protein 6.9 (6.3-8.2) g/dL Albumin 4.0 (3.5-5.0) g/dL Current Medications Generic Name Dose Route Start Last Admin Trade Name Freq PRN Reason Stop Dose Admin Acetaminophen 650 mg 01/29/23 19:32 01/29/23 19:46 Acetaminophen Tab 325 Mg Tab PO 650 mg Q6HR PRN Administration Fever and/ or Pain Alprazolam 0.25 mg 01/29/23 16:16 Alprazolam 0.25 Mg Tab PO TID PRN Anxiety Amlodipine Besylate 10 mg 01/29/23 16:30 01/29/23 16:34 Amlodipine 10 Mg Tab PO 10 mg DAILY DOMINGO Administration Aspirin 325 mg 01/30/23 09:00 Aspirin 325 Mg Tab PO DAILY DOMINGO Levothyroxine Sodium 25 mcg 01/29/23 21:00 01/29/23 20:19 Levothyroxine 25 Mcg Tab PO Not Given HS DOMINGO Metoprolol Tartrate 25 mg 01/29/23 13:15 01/29/23 20:15 Metoprolol Tartrate 25 Mg Tab PO 25 mg BID DOMINGO Administration Nitroglycerin 0.4 mg 01/29/23 13:13 Nitroglycerin Sl Tabs 0.4 Mg Tab SUBLINGUAL Q5M PRN Chest Pain Nitroglycerin 1 inch 01/29/23 18:00 01/30/23 05:34 Nitroglycerin Oint 1 Inch/Gm Packet TOPICAL Not Given Q6HR DOMINGO Temazepam 15 mg 01/29/23 16:16 Temazepam 15 Mg Cap PO HS PRN Insomnia Intake and Output 01/29/23 01/30/23 01/30/23 22:59 06:59 14:59 Other: Voiding Method Toilet # Voids 1 2 Weight 82.554 kg 01/29/23 10:38 01/29/23 10:38
--- NOTE | 2023-01-30 12:14 | CA ---
Transthoracic Echo Report Name: Olivia Angeles Age: 57 Gender: F : 1965 Exam Date: 01/30/2023 08:33 Exam Location: [facility] Ht (in): 63 Wt (lb): 182 Ordering Physician: Kenya Shah Attending/Referring Phys: [id number], Alyssa Installment Account Checker Geetha Lozada RDCS Procedure CPT: Indications: LVF Cardiac Hx: Technical Quality: Fair Contrast 1: Total Dose (mL): Contrast 2: Total Dose (mL): MEASUREMENTS (Male / Female) Normal Values 2D ECHO LV Diastolic Diameter PLAX 4.5 cm 4.2 - 5.9 / 3.9 - 5.3 cm LV Systolic Diameter PLAX 3.1 cm IVS Diastolic Thickness 1.4 cm 0.6 - 1.0 / 0.6 - 0.9 cm LVPW Diastolic Thickness 1.6 cm 0.6 - 1.0 / 0.6 - 0.9 cm LV Relative Wall Thickness 0.7 RV Internal Dim ED PLAX 2.9 cm LA Volume 32.7 cm??? 18 - 58 / 22 - 52 cm??? M-MODE Aortic Root Diameter MM 3.3 cm LA Systolic Diameter MM 3.4 cm LA Ao Ratio MM 1.0 AV Cusp Separation MM 2.0 cm DOPPLER LVOT Peak Velocity 105.0 cm/s LVOT Peak Gradient 4.4 mmHg LVOT Velocity Time Integral 22.3 cm MV Area PHT 3.3 cm??? Mitral E Point Velocity 99.5 cm/s Mitral A Point Velocity 102.7 cm/s Mitral E to A Ratio 1.0 MV Deceleration Time 230.8 ms MV E' Velocity 6.3 cm/s Mitral E to MV E' Ratio 15.9 FINDINGS Left Ventricle Moderately increased left ventricular wall thickness. Left ventricular cavity size normal. Normal left ventricular systolic function with no obvious regional wall motion abnormalities. Left ventricular ejection fraction is estimated at 55-60 %. Right Ventricle Normal right ventricular size and function. Right ventricular systolic pressure within normal limits. Right Atrium Normal right atrial size. Left Atrium Normal left atrial size. Mitral Valve Structurally normal mitral valve. No mitral stenosis, regurgitation or prolapse. Aortic Valve Trileaflet aortic valve. No aortic valve stenosis or regurgitation. Tricuspid Valve Structurally normal tricuspid valve. Mild tricuspid regurgitation. Pulmonic Valve Structurally normal pulmonic valve. Trace pulmonic regurgitation. Pericardium No pericardial effusion. Aorta Normal size aortic root and proximal ascending aorta. CONCLUSIONS Moderately increased left ventricular wall thickness Left ventricular ejection fraction 55-60% No mitral regurgitation Mild tricuspid regurgitation No pericardial effusion Previewed by: Dr. Tonio Castro DO (Electronically Signed) Final Date: 30 January 2023 12:14
--- NOTE | 2023-01-30 14:09 | DS ---
DISCHARGE SUMMARY FINAL DIAGNOSES: 1. Chest pain, myocardial infarction ruled out. 2. Recent negative stress test. 3. Accelerated hypertension. 4. Nephrolithiasis. 5. Cholecystitis. 6. History of anxiety. DISCHARGE DISPOSITION: The patient will be discharged in stable condition, guarded prognosis. HISTORY OF PRESENT ILLNESS: This is a 57-year-old woman with a past medical history of multiple medical problems, admitted with chest pain and accelerated hypertension, treated symptomatically, improved significantly. The patient had recent negative stress. Cardiology performed a 2D echo and recommended the patient for discharge. PHYSICAL EXAMINATION: VITAL SIGNS: Stable. CARDIOVASCULAR: S1, S2. ABDOMEN: Soft. NERVOUS SYSTEM: Nonfocal. DISCHARGE ADVICE AND MEDICATIONS: The patient will be discharged in stable condition. Guarded prognosis. Lopressor 25 mg p.o. b.i.d. and Norvasc 5 mg p.o. daily and continue the rest of medications. Follow up with Cardiology in 1 week. Follow up with Dr. Beach in 1-2 days. MMODL / IJN: [id number] /
== END 2023-01-30 14:44 | disposition home or self-care (01) ==
LOC: EC 10:07 → 6NMEDSUR 13:14
PROVIDERS: ADMIT Hospitalist; ATTEND Hospitalist
DX: R07.89 Other chest pain (principal); I11.9 Hypertensive heart disease without heart failure; E78.1 Pure hyperglyceridemia; Q61.3 Polycystic kidney, unspecified; R00.2 Palpitations; R11.0 Nausea; F41.9 Anxiety disorder, unspecified; Z79.890 Hormone replacement therapy; Z79.899 Other long term (current) drug therapy; Z87.19 Personal history of other diseases of the digestive system; Z87.442 Personal history of urinary calculi; Z90.49 Acquired absence of other specified parts of digestive tract; Z98.890 Other specified postprocedural states; Z84.1 Family history of disorders of kidney and ureter; Z82.49 Family history of ischemic heart disease and other diseases of the circulatory system; Z83.49 Family history of other endocrine, nutritional and metabolic diseases; Z83.79 Family history of other diseases of the digestive system; Z83.3 Family history of diabetes mellitus; Z80.3 Family history of malignant neoplasm of breast
CPT/HCPCS: 99285; 36415; 93005; 93306; 85379; 80061; 80053; 80048; 84443; 83735; 84484; 85025 ×2; 85610; 85730; 71046; G0378 ×2

== ENCOUNTER → 2023-06-01 | Outpatient (CLI) | payer OTHER ==
--- NOTE | 2023-06-04 20:49 | MM ---
Reason for Exam: Screening (asymptomatic). Last mammogram was performed 2 year(s) and 7 month(s) ago. Patient History: Menarche at age 12. First Full-Term at age 27. Postmenopausal. Paternal aunt had breast cancer at or over age 50. Sister (delfina) had breast cancer at or over age 50. Sister (chase) had breast cancer at or over age 50. Risk Values: Falguni 5 year model risk: 4.5%. NCI Lifetime model risk: 21.4%. Prior Study Comparison: 03/28/1997 Bilateral Special View Mammogram, [facility]. 11/16/2017 Bilateral Screening Mammogram, [facility]. 01/11/2018 Right Diagnostic Mammogram, [facility]. 10/27/2020 Bilateral Screening Mammogram, [facility]. Tissue Density: There are scattered fibroglandular densities. Findings: Analyzed By CAD. Microclip right breast from prior biopsy. Chronic nodularity right breast. There is no suspicious group of microcalcifications or new suspicious mass in either breast. Overall Assessment: Benign, BI-RAD 2 Management: Screening Mammogram of both breasts in 1 year. SEE NOTE BELOW IN REGARDS TO PATIENT'S INCREASED 5 YEAR FALGUNI SCORE AND INCREASED LIFETIME RISK SCORE. Patient should continue monthly self-breast exams. A clinical breast exam by your physician is recommended on an annual basis. This exam should not preclude additional follow-up of suspicious palpable abnormalities. Note on Falguni scores and lifetime risk: 1. A Falguni score greater than 3% is considered moderate risk. If this is the case, consider specialist referral to assess eligibility for a risk reducing agent. 2. If overall lifetime risk for the development of breast cancer is 20% or higher, the patient may qualify for future screening with alternating mammogram and breast MRI. Electronically signed and approved by: Glenn Munguia M.D. Radiologist
== END | disposition home or self-care (01) ==
LOC: RADMAMWWP 13:23
PROVIDERS: ATTEND Obstetrics & Gynecology
DX: Z12.31 Encounter for screening mammogram for malignant neoplasm of breast (principal); Z80.3 Family history of malignant neoplasm of breast; Z78.0 Asymptomatic menopausal state
CPT/HCPCS: 77067